=== PATIENT | female | born 1950 | race Caucasian/White ===

== ENCOUNTER 2021-06-20 07:26 | Emergency (ER) | payer MEDICARE, SELFPAY ==
[2021-06-20] VITALS (7 sets, daily range): BP systolic 100–189; BP diastolic 54–90; PULSE 75–99; RESP 12–19; TEMP 36.6–37; O2SAT 96–98; BMI 17.4
--- NOTE | ~2021-06-20 | CT_ITS ---
EXAMINATION: CT CERVICAL SPINE WITHOUT CONTRAST CLINICAL INFORMATION: Generalized weakness. COMPARISON: None TECHNIQUE: Helical scanning was performed with submillimeter collimation in the axial plane with multiplanar 2-D reconstructions. This CT examination was performed using dose optimization techniques as appropriate, variously including the following: *Automated exposure control *Adjustment of mA and/or kV according to patient size (this includes techniques or standardized protocols for targeted exams where dose is matched to indication/reason for exam; i.e. extremities or head) *Use of iterative reconstruction technique DLP: 311 mGy-cm FINDINGS: There is no acute fracture, subluxation, or prevertebral soft tissue swelling. There is [id number] multilevel degenerative disc disease with small marginal osteophytes. There is moderate disc space narrowing at C5-C6. There is mild bilateral multilevel facet arthropathy. CT/CT cervical spine wo con IMPRESSION: Hitg-bi-djrcrpzl multilevel degenerative disc disease. No evidence of acute injury.
--- NOTE | ~2021-06-20 | CT_ITS ---
EXAMINATION: CT ANGIOGRAM OF THE CHEST WITH AND WITHOUT CONTRAST (CT PULMONARY ANGIOGRAM FOR PE) CLINICAL INFORMATION: Reason for Exam weakness, LE swelling, wt loss, r/o pe vs mass . Abnormal noncontrast head CT. Assess for thoracic lesion. COMPARISON: None TECHNIQUE: Prior to contrast administration, noncontrast localization images were obtained. Subsequently, multidetector volumetric imaging was performed from the thoracic inlet to below the diaphragms following the administration of 54 mL Omnipaque 350 intravenous contrast. Sagittal, coronal, and MIP oblique sagittal reformatted images were obtained on the CT workstation, uploaded to PACS, and reviewed. This CT examination was performed using dose optimization techniques as appropriate, variously including the following: *Automated exposure control *Adjustment of mA and/or kV according to patient size (this includes techniques or standardized protocols for targeted exams where dose is matched to indication/reason for exam; i.e. extremities or head) *Use of iterative reconstruction technique Total exam dose-length product 171 mGy-cm FINDINGS: QUALITY OF STUDY/CONTRAST BOLUS: Suboptimal; Non-diagnostic. PULMONARY ARTERIES: The examination is nondiagnostic for evaluation of pulmonary embolism. Contrast timing is preferential for the aorta and the pulmonary veins. There is not enough enhancement in the pulmonary arteries to allow for reliable assessment. THORACIC AORTA: No aneurysm or dissection. LUNG: The central airways are clear. There is no lobar or segmental airspace consolidation. No pneumothorax. Some dependent atelectasis is present posterior bases, greater on left. No suspicious groundglass opacities. PLEURA: No pleural effusion or pneumothorax. MEDIASTINUM: Heart size normal. No pericardial effusion. No hilar or mediastinal mass or adenopathy. CHEST WALL/AXILLA: No axillary or internal mammary lymphadenopathy. OSSEOUS STRUCTURES: No acute or suspicious osseous abnormality. UPPER ABDOMEN: CT abdomen and pelvis described in separate report. Results called and discussed with Stephanie Wang NP in the emergency Department at [address]/CT angio chest PE protocol IMPRESSION: 1. Nondiagnostic for pulmonary embolism due to technical factors (preferential enhancement pulmonary veins and aorta). 2. No thoracic aortic enlargement or dissection. 3. Posterior basilar dependent atelectasis, greater on left. No mass or adenopathy or effusion. 4. CT abdomen and pelvis described in separate report. VTE: indeterminate
--- NOTE | ~2021-06-20 | CT_ITS ---
EXAMINATION: CT ABDOMEN AND PELVIS WITH CONTRAST CLINICAL INFORMATION: Weight loss, lower extremity swelling, rule out malignancy. COMPARISON: None. TECHNIQUE: Multidetector volumetric images were obtained from the superior aspect of the liver through the pubic symphysis following administration 54 mL of Omnipaque 350 intravenous contrast. Sagittal and coronal reformatted images were obtained on the technologist's workstation. Oral contrast: No This CT examination was performed using dose optimization techniques as appropriate, variously including the following: *Automated exposure control *Adjustment of mA and/or kV according to patient size (this includes techniques or standardized protocols for targeted exams where dose is matched to indication/reason for exam; i.e. extremities or head) *Use of iterative reconstruction technique DLP: 1237 mGy-cm FINDINGS: LUNG BASES: See chest CT report. Evaluation is somewhat limited by delayed phase of enhancement, following contrast enhanced chest CT. LIVER, GALLBLADDER, AND BILIARY TREE: Indeterminate 1 cm left lobe hypodense liver lesion. No intrahepatic biliary duct dilatation. The gallbladder is unremarkable with no evidence of radiopaque gallstones, gallbladder wall thickening, or obvious pericholecystic inflammatory changes. PANCREAS: No discrete lesion is seen. No dilatation seen. SPLEEN: No focal lesion. ADRENAL GLANDS: Appears within normal limits. KIDNEYS AND URETERS: There is contrast opacifying the collecting systems. No suspicious renal lesions identified, evaluation limited by phase of enhancement. There are multiple small hypodense lesions in the left kidney, too small to characterize. No radiopaque calculi. No hydronephrosis. BLADDER: Unremarkable. GASTROINTESTINAL TRACT: Stomach is nondistended, not evaluated. No dilated small or large bowel loops is seen. There is paucity of intra-abdominal fat limiting evaluation. There is moderate stool in the large colon. Large colon is nondistended, limiting evaluation mass lesion. No dilated small bowel loops. No acute inflammatory changes are seen. No gross free fluid. No free air. ABDOMINAL WALL: No significant hernia is appreciated. LYMPH NODES: No enlarged lymph nodes identified in the abdomen or pelvis. VASCULAR: Normal caliber aorta. PELVIC VISCERA: Uterus is retroverted limiting evaluation, but no obvious abnormality evident by CT. No adnexal masses identified, evaluation limited. OSSEOUS STRUCTURES: Scattered mild degenerative changes in the visualized spine. No acute or suspicious osseous abnormality seen. CT/CT abdomen pelvis w con IMPRESSION: 1. Indeterminate 1 cm hypodense left lobe liver lesion. This can be further evaluated with MRI without and with contrast. 2. No acute process otherwise identified in the abdomen or pelvis. 3. No obvious mass lesion is identified, within the limitations of the study, detailed above. Recommend close clinical correlation and management. Follow-up imaging for reassessment as clinically warranted. There is clinical concern for a large colon lesion, further evaluation with colonoscopy may be considered.
--- NOTE | ~2021-06-20 | US_ITS ---
EXAMINATION: US VENOUS ULTRASOUND WITH DOPPLER LOWER EXTREMITY, BILATERAL CLINICAL INFORMATION: Swelling COMPARISON: None TECHNIQUE: Ultrasound of the deep veins is performed from the hip to the calf with compression sonography and color and pulse Doppler assessment. Spectral analysis with color-flow imaging is performed. FINDINGS: RIGHT: There is normal venous compression and respiratory variation and augmented flow. The visualized common femoral vein, superficial femoral vein, profunda femoral vein, popliteal vein, and the trifurcation region shows no evidence of deep venous thrombosis. There is no significant popliteal fossa cyst. . LEFT: There is normal venous compression and respiratory variation and augmented flow. The visualized common femoral vein, superficial femoral vein, profunda femoral vein, popliteal vein, and the trifurcation region shows no evidence of deep venous thrombosis. There is no significant popliteal fossa cyst. . If the patient's symptoms persist, followup ultrasound in 5 days 7 days might be of value to exclude proximal propagation from a non-visualized calf vein. US/US venous duplex LE BI IMPRESSION: No DVT demonstrated in the bilateral lower extremity.
--- NOTE | ~2021-06-20 | MR_ITS ---
EXAMINATION: MR BRAIN WITHOUT AND WITH CONTRAST CLINICAL INFORMATION: Weakness. Weight loss. COMPARISON: None TECHNIQUE: MRI of the brain was obtained using routine sequences without and following the administration of 5 mL of Gadavist intravenous contrast. FINDINGS: No focal restricted diffusion is demonstrated to suggest acute or subacute cerebral ischemia. No evidence of acute or chronic hemorrhagic products on heme-sensitive imaging. Partially confluent periventricular, deep white matter, and brainstem T2 FLAIR hyperintensities. The ventricles are normal in morphology and size. No abnormal mass effect. No midline shift. Normal appearance of the pituitary gland. The cerebellar tonsils are mildly low lying, positioned 0.3 cm below the foramen magnum. The CSF space of the foramen magnum is maintained. Normal arterial and venous vascular flow voids are present. Small developmental venous anomaly within the high right frontal lobe. No abnormal contrast enhancement. Normal, homogeneous marrow signal. There is a 1 cm subcutaneous nodule along the vertex of the skull without demonstrated internal enhancement, suggestive of a small pilomatricoma. Moderate mucosal thickening of the paranasal sinuses with prominent mucous retention cysts within the maxillary sinuses. No signal abnormalities within the mastoids. MR/MR head/brain wo/w con IMPRESSION: 1. No acute intracranial abnormalities. No abnormal intracranial enhancement. 2. Moderate to extensive underlying white matter disease most commonly seen with underlying microangiopathy. 3. Mild cerebellar tonsillar ectopia. 4. Moderate sinonasal mucosal disease.
--- NOTE | ~2021-06-20 | CT_ITS ---
CT HEAD WITHOUT CONTRAST CLINICAL INFORMATION: Falls. COMPARISON: None available. TECHNIQUE: Contiguous axial imaging was performed from the skull base to vertex without intravenous administration of contrast. This CT examination was performed using dose optimization techniques as appropriate, variously including the following: *Automated exposure control *Adjustment of mA and/or kV according to patient size (this includes techniques or standardized protocols for targeted exams where dose is matched to indication/reason for exam; i.e. extremities or head) *Use of iterative reconstruction technique FINDINGS: There is fairly extensive nonspecific hypoattenuation within the supratentorial white matter for which a MRI of the brain with and without IV contrast would be helpful in further assessment. There is no intracranial hemorrhage, hydrocephalus, extra-axial surface collection, midline shift, or other herniation pattern. Leslie to white matter differentiation is diffusely maintained without evidence of an evolved acute territorial infarct. The basilar cisterns are preserved. No significant soft tissue abnormality. No acute osseous abnormality. Moderate opacification of the maxillary sinuses and ethmoid air cells bilaterally. Mild mucosal thickening within the remaining paranasal sinuses. 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 CT/CT head/brain wo con IMPRESSION: - There is fairly extensive nonspecific hypoattenuation within the supratentorial white matter for which a MRI of the brain with and without IV contrast would be helpful in further assessment. - Moderate opacification of the maxillary sinuses and ethmoid air cells bilaterally. Mild mucosal thickening within the remaining paranasal sinuses.
--- NOTE | 2021-06-20 08:19 | ECG_ITS ---
Test Reason : WEAKNESS Blood Pressure : / mmHG Vent. Rate : 094 BPM Atrial Rate : 094 BPM P-R Int : 148 ms QRS Dur : 070 ms QT Int : 352 ms P-R-T Axes : 071 073 065 degrees QTc Int : 440 ms Normal sinus rhythm Normal ECG No previous ECGs available Referred By: Bhumi Wang Electronically Signed By:JONNY HAWKINS
--- NOTE | 2021-06-20 08:19 | ED.WEAKNESS ---
HPI - Weakness General Chief complaint: Weakness Stated complaint: general weakness and shaking x2 days Time Seen by Provider: 06/20/21 08:00 Source: family and EMS Mode of arrival: EMS Limitations: no limitations History of Present Illness HPI Narrative: 70 yo female with no known medical history here with multiple complaints. Patient tells me she has had an unintentional weight loss of 40 lbs over the last 12 months. She has had generalized weakness with multiple falls at home since december 2020. Over the last month increasing weakness, unable to use their stairs at home. Today woke and unable to get out of bed. +generalized weakness and feeling shaky. Per patient lost 3 siblings to cancer since 2018 and suffers from frequent anxiety and panic attacks. She can also quite withdrawn. Patient does report anxiety and depression. She denies any suicidal or homicidal ideations. Her does help her with bathing and toileting. She is able to eat independently. She has not seen a primary care doctor in more than 10 years. She is not currently on any medications. She has never had a screening colonoscopy. She tells me that she has family history of pancreatic cancer, ?ovarian cancer, brain tumor, ALS. Related Data Allergies Allergy/AdvReac Type Severity Reaction Status Date / Time No Known Allergies Allergy Verified 06/20/21 08:19 Review of Systems Review of Systems: Yes all other systems are reviewed and are negative Constitutional: Constitutional: Reports no additional constitutional complaints, Denies body ache(s), Denies chills, Denies fever(s), Denies headache(s), Reports weakness and Reports weight loss Eyes: Eyes: Reports no additional eye complaints and Denies change in vision ENT: Reports system reviewed and no additional complaints, except as documented, Denies dizziness, Denies headache(s), Denies nasal congestion, Denies nasal discharge and Denies neck pain Cardiovascular: Cardiovascular: Reports no additional cardiovascular complaints, Denies chest pain, Reports leg edema and Denies dyspnea Respiratory: Respiratory: Reports no additional respiratory complaints, Denies cough and Denies dyspnea Gastrointestinal: Gastrointestinal: Reports no additional gastrointestinal complaints, Denies abdominal pain, Denies diarrhea, Denies nausea and Denies vomiting Genitourinary: Genitourinary: Reports no additional female genitourinary complaints and Denies urinary incontinence Musculoskeletal: Musculoskeletal: Reports no additional musculoskeletal complaints, Denies back pain, Denies arthralgias, Denies joint swelling, Denies neck pain, Denies numbness and Denies tingling Integumentary/Breasts: Skin/Breast: Reports system reviewed and no additional complaints, except as docu and Denies rash Neurologic: Reports system reviewed and no additional complaints, except as documented, Denies Abnormal speech present, Denies dizziness, Denies headache(s), Denies numbness, Denies tingling and Reports weakness PMFSH Past Medical History Attestation statement: The following information was validated with the patient. Source: old records reviewed and nursing notes reviewed Medical History No known health problems Social History Social History Alcohol intake: never Patient Tobacco Use Status: Never used Tobacco Use of substances other than those prescribed or required for medical reasons: No Advance Directives: No Advance Directives Information Provided: Yes Physical Exam Vital Signs: Vital Signs: Last Vital Signs Temp 97.8 F 06/20/21 07:33 Pulse 92 06/20/21 16:53 Resp 18 06/20/21 16:53 BP 167/79 H 06/20/21 16:53 Pulse Ox 98 06/20/21 16:53 Body Mass Index 17.4 Const: Other: Thin appearing General: cooperative Orientation/consciousness: patient oriented x3 Limitations: no limitations HENMT: Head: Yes normal to inspection Ears: hearing grossly normal bilaterally General nose exam: Normal external nose present Face and sinus: Yes normal facial exam Mouth: Normal oral and palatal mucosa present Throat: Yes posterior oropharynx normal Eyes: General: appearance normal, both eyes and all related structures Pupils: Equal, round and reactive pupils present Neck: Neck: Yes normal visual inspection Chest: Chest palpation & inspection: normal inspection of the chest Resp: Effort & Inspection: normal respiratory effort Auscultation: clear to auscultation bilaterally Cardio: Rate: regular rate Rhythm: regular rhythm Peripheral pulses: Peripheral pulses 2+ throughout GI: Inspection: Yes normal to inspection Palpation (GI): Soft to palpation and nontender Auscultation: normal bowel sounds Back/Spine/Pelvis: Thoracic/Lumbar Spine: thoracic and lumbar spine normal to inspection Skin: General skin exam: no rashes or lesions noted Neuro: General: patient oriented x3, no focal motor deficits and normal sensation to monofilament Cranial nerves: Yes Equal, round and reactive pupils present Cognition (Neuro): normal cognition Speech: No Abnormal speech present Gait exam (Neuro): Normal gait present Motor exam (neuro): 5/5 motor strength present throughout Extrem: Other: bilateral LE-pitting 2+ extending over the mid shins with some discoloration. No warmth or tenderness General: Yes normal to inspection Course Course Course Narrative: 70-year-old female here with complaints of generalized weakness, multiple falls, unintentional weight loss and lower extremity edema. Patient unfortunately has not seen a primary care doctor in quite some time and denies daily medications. She also tells me that she has not had any normal screening such as colonoscopy use or mammograms. She has significant family history for multiple malignancies. Will need labs, EKG, UA, chest x-ray and bilateral venous ultrasound to begin with. -Initial labs, imaging, UA negative. Concern for malignancy with weakness, wt loss -will check CT head, CT chest, CT abdomen/pelvis. If negative patient may need to care team to eval for depression component in addition to CM. 1400-CT chest nondiagnostic for PE. CT abdomen and pelvis shows no acute process. Ct brain - There is fairly extensive nonspecific hypoattenuation within the supratentorial white matter for which a MRI of the brain with and without IV contrast would be helpful in further assessment. ? - Moderate opacification of the maxillary sinuses and ethmoid air cells bilaterally. Mild mucosal thickening within the remaining paranasal sinuses. Discussed with attending Dr Simms. Plan for MRI brain. 1600-patient unable to tolerate MRI. She was brought back by MRI staff. Plan to go back to MRI at 17:00 with premedication 1740-if MRI negative patient will need physical therapy evaluation and case management involvement for likely placement. I did speak to the at length. He is quite concerned that the patient is depressed and anxious. He is asking for her to be evaluated by a crisis member. Therefore will place care team evaluation as well. 1800-Sign out to Paula LOMAX pending above. MDM - Weakness Medical Records Attestation: I reviewed the patient's medical records. Lab Data Attestation: I reviewed the patient's lab results. Result diagrams: 06/20/21 09:05 06/20/21 08:54 Labs: Lab Results 06/20/21 06/20/21 06/20/21 Range/Units 08:54 08:54 08:54 WBC (4.8-10.8) X10*3/uL RBC (4.20-5.50) X10*6/uL Hgb (12.0-16.0) g/dl Hct (37-47) % MCV (80-98) fL MCH (27.0-33.0) pg MCHC (31.0-35.0) g/dl RDW (11.0-16.0) % Plt Count (160-400) X10*3/uL MPV (9.4-12.3) fL Immature Gran % (Auto) (0.0-0.4) % Neut % (Auto) (45-73) % Lymph % (Auto) (20-40) % [place] % (Auto) (2-11) % Eos % (Auto) (0-4) % Baso % (Auto) (0-2) % Lymph # (Auto) (1.2-4.9) X10*3/uL [place] # (Auto) (0.1-1.2) X10*3/uL Eos # (Auto) (0.0-0.4) X10*3/uL Baso # (Auto) (0.0-0.2) X10*3/uL Abs Immat Gran (auto) (0.00-0.03) X10*3/uL Absolute Neuts (auto) (2.0-8.3) X10*3/uL Absolute Nucleated RBC (0.0-0.012) X10*3/uL Nucleated RBC % (auto) (0.0-0.2) /100WBC PT 12.7 (9.9-13.0) SEC INR 1.1 (0.9-1.1) Sodium 140 (135-145) mmol/L Potassium 4.0 (3.3-5.1) mmol/L Chloride 104 (96-108) mmol/L Carbon Dioxide 29 (22-29) mmol/L Anion Gap 11 L (12-20) BUN 19 H (9-16) mg/dL Creatinine 0.66 (0.5-1.4) mg/dL Estim Creat Clear Calc 67.2 Estimated GFR > 60 Random Glucose 104 (60-115) mg/dL Lactic Acid 0.7 (0.5-2.0) mmol/L Calcium 9.5 (8.4-10.2) mg/dL Magnesium 2.4 (1.6-2.6) mg/dL Total Bilirubin 0.9 (0.0-1.0) mg/dL Direct Bilirubin 0.3 (0.0-0.5) mg/dL AST 29 (5-31) U/L ALT 20 (0-31) U/L Alkaline Phosphatase 45 (39-117) U/L Troponin I High Sens (<3.5-17.0) ng/L B-Natriuretic Peptide (<100) pg/mL Total Protein 7.3 (6.5-8.0) g/dL Albumin 4.3 (3.5-5.0) g/dL Urine Color Urine Appearance Urine pH (5.0-8.0) Ur Specific [place] (1.005-1.025) Urine Protein (NEG-TRACE) MG/DL Urine Glucose (UA) (NEG) MG/DL Urine Ketones (NEG) MG/DL Urine Blood (NEG) Urine Nitrite (NEG) Ur Leukocyte Esterase (NEG) COVID-19 (VLADIMIR) (Negative) COVID-19 Clin Com 06/20/21 06/20/21 06/20/21 Range/Units 08:54 08:54 09:05 WBC 5.2 (4.8-10.8) X10*3/uL RBC 3.93 L (4.20-5.50) X10*6/uL Hgb 12.9 (12.0-16.0) g/dl Hct 38.8 (37-47) % MCV 98.7 H (80-98) fL MCH 32.8 (27.0-33.0) pg MCHC 33.2 (31.0-35.0) g/dl RDW 13.1 (11.0-16.0) % Plt Count 221 (160-400) X10*3/uL MPV 9.2 L (9.4-12.3) fL Immature Gran % (Auto) 0.2 (0.0-0.4) % Neut % (Auto) 78.6 H (45-73) % Lymph % (Auto) 13.1 L (20-40) % [place] % (Auto) 6.9 (2-11) % Eos % (Auto) 1.0 (0-4) % Baso % (Auto) 0.2 (0-2) % Lymph # (Auto) 0.7 L (1.2-4.9) X10*3/uL [place] # (Auto) 0.4 (0.1-1.2) X10*3/uL Eos # (Auto) 0.1 (0.0-0.4) X10*3/uL Baso # (Auto) 0.0 (0.0-0.2) X10*3/uL Abs Immat Gran (auto) 0.01 (0.00-0.03) X10*3/uL Absolute Neuts (auto) 4.1 (2.0-8.3) X10*3/uL Absolute Nucleated RBC 0.000 (0.0-0.012) X10*3/uL Nucleated RBC % (auto) 0.0 (0.0-0.2) /100WBC PT (9.9-13.0) SEC INR (0.9-1.1) Sodium (135-145) mmol/L Potassium (3.3-5.1) mmol/L Chloride (96-108) mmol/L Carbon Dioxide (22-29) mmol/L Anion Gap (12-20) BUN (9-16) mg/dL Creatinine (0.5-1.4) mg/dL Estim Creat Clear Calc Estimated GFR Random Glucose (60-115) mg/dL Lactic Acid (0.5-2.0) mmol/L Calcium (8.4-10.2) mg/dL Magnesium Cancelled (1.6-2.6) mg/dL Total Bilirubin (0.0-1.0) mg/dL Direct Bilirubin (0.0-0.5) mg/dL AST (5-31) U/L ALT (0-31) U/L Alkaline Phosphatase (39-117) U/L Troponin I High Sens (<3.5-17.0) ng/L B-Natriuretic Peptide (<100) pg/mL Total Protein (6.5-8.0) g/dL Albumin (3.5-5.0) g/dL Urine Color Urine Appearance Urine pH (5.0-8.0) Ur Specific [place] (1.005-1.025) Urine Protein (NEG-TRACE) MG/DL Urine Glucose (UA) (NEG) MG/DL Urine Ketones (NEG) MG/DL Urine Blood (NEG) Urine Nitrite (NEG) Ur Leukocyte Esterase (NEG) COVID-19 (VLADIMIR) Negative (Negative) COVID-19 Clin Com See Note 06/20/21 06/20/21 Range/Units 09:05 09:24 WBC (4.8-10.8) X10*3/uL RBC (4.20-5.50) X10*6/uL Hgb (12.0-16.0) g/dl Hct (37-47) % MCV (80-98) fL MCH (27.0-33.0) pg MCHC (31.0-35.0) g/dl RDW (11.0-16.0) % Plt Count (160-400) X10*3/uL MPV (9.4-12.3) fL Immature Gran % (Auto) (0.0-0.4) % Neut % (Auto) (45-73) % Lymph % (Auto) (20-40) % [place] % (Auto) (2-11) % Eos % (Auto) (0-4) % Baso % (Auto) (0-2) % Lymph # (Auto) (1.2-4.9) X10*3/uL [place] # (Auto) (0.1-1.2) X10*3/uL Eos # (Auto) (0.0-0.4) X10*3/uL Baso # (Auto) (0.0-0.2) X10*3/uL Abs Immat Gran (auto) (0.00-0.03) X10*3/uL Absolute Neuts (auto) (2.0-8.3) X10*3/uL Absolute Nucleated RBC (0.0-0.012) X10*3/uL Nucleated RBC % (auto) (0.0-0.2) /100WBC PT (9.9-13.0) SEC INR (0.9-1.1) Sodium (135-145) mmol/L Potassium (3.3-5.1) mmol/L Chloride (96-108) mmol/L Carbon Dioxide (22-29) mmol/L Anion Gap (12-20) BUN (9-16) mg/dL Creatinine (0.5-1.4) mg/dL Estim Creat Clear Calc Estimated GFR Random Glucose (60-115) mg/dL Lactic Acid (0.5-2.0) mmol/L Calcium (8.4-10.2) mg/dL Magnesium (1.6-2.6) mg/dL Total Bilirubin (0.0-1.0) mg/dL Direct Bilirubin (0.0-0.5) mg/dL AST (5-31) U/L ALT (0-31) U/L Alkaline Phosphatase (39-117) U/L Troponin I High Sens 5.2 (<3.5-17.0) ng/L B-Natriuretic Peptide 60 (<100) pg/mL Total Protein (6.5-8.0) g/dL Albumin (3.5-5.0) g/dL Urine Color YELLOW Urine Appearance CLEAR Urine pH 6.5 (5.0-8.0) Ur Specific [place] <= 1.005 (1.005-1.025) Urine Protein NEG (NEG-TRACE) MG/DL Urine Glucose (UA) NEG (NEG) MG/DL Urine Ketones NEG (NEG) MG/DL Urine Blood NEG (NEG) Urine Nitrite NEG (NEG) Ur Leukocyte Esterase NEG (NEG) COVID-19 (VLADIMIR) (Negative) COVID-19 Clin Com Imaging Data Venous US: Attestation: I personally reviewed and interpreted this imaging study as follows: Radiologist's impression: [place] [address] Ultrasound Report Signed Patient: Brett Turner MR#: [id number] : 1950 Acct:[id number] Age/Sex: 70 / F ADM Date: 06/20/21 Loc: .ED Attending Dr: Ordering Physician: Bhumi Wang NP Date of Service: 06/20/21 Procedure(s): US venous duplex LE BI Accession Number(s): [id number] cc: Bhumi Wang NP~ EXAMINATION:? US VENOUS ULTRASOUND WITH DOPPLER LOWER EXTREMITY, BILATERAL CLINICAL INFORMATION:? Swelling COMPARISON:? None TECHNIQUE: Ultrasound of the deep veins is performed from the hip to the calf with compression sonography and color and pulse Doppler assessment. Spectral analysis with color-flow imaging is performed. FINDINGS: RIGHT: There is normal venous compression and respiratory variation and augmented flow. The visualized common femoral vein, superficial femoral vein, profunda femoral vein, popliteal vein, and the trifurcation region shows no evidence of deep venous thrombosis. ? There is no significant popliteal fossa cyst. . LEFT: There is normal venous compression and respiratory variation and augmented flow. The visualized common femoral vein, superficial femoral vein, profunda femoral vein, popliteal vein, and the trifurcation region shows no evidence of deep venous thrombosis. ? There is no significant popliteal fossa cyst. . If the patient's symptoms persist, followup ultrasound in 5 days 7 days might be of value to exclude proximal propagation from a non-visualized calf vein. US/US venous duplex LE BI IMPRESSION: No DVT demonstrated in the bilateral lower extremity. CTA chest: Attestation: I personally reviewed and interpreted this imaging study as follows: Radiologist's impression: [address] [address] [address] Scan Report Signed Patient: Brett Turner MR#: [id number] : 1950 Acct:[id number] Age/Sex: 70 / F ADM Date: 06/20/21 Loc: .ED Attending Dr: Ordering Physician: Bhumi Wang NP Date of Service: 06/20/21 Procedure(s): CT angio chest PE protocol Accession Number(s): [id number] cc: Bhumi Wang NP~ EXAMINATION: CT ANGIOGRAM OF THE CHEST WITH AND WITHOUT CONTRAST (CT PULMONARY ANGIOGRAM FOR PE) CLINICAL INFORMATION: Reason for Exam weakness, LE swelling, wt loss, r/o pe vs mass . Abnormal noncontrast head CT. Assess for thoracic lesion. COMPARISON: None? TECHNIQUE: Prior to contrast administration, noncontrast localization images were obtained. ? Subsequently, multidetector volumetric imaging was performed from the thoracic inlet to below the diaphragms following the administration of 54 mL Omnipaque 350 intravenous contrast. Sagittal, coronal, and MIP oblique sagittal reformatted images were obtained on the CT workstation, uploaded to PACS, and reviewed. This CT examination was performed using dose optimization techniques as appropriate, variously including the following: *Automated exposure control *Adjustment of mA and/or kV according to patient size (this includes techniques or standardized protocols for targeted exams where dose is matched to indication/reason for exam; i.e. extremities or head) *Use of iterative reconstruction technique Total exam dose-length product 171 mGy-cm FINDINGS: QUALITY OF STUDY/CONTRAST BOLUS: Suboptimal; Non-diagnostic. PULMONARY ARTERIES: The examination is nondiagnostic for evaluation of pulmonary embolism. Contrast timing is preferential for the aorta and the pulmonary veins. There is not enough enhancement in the pulmonary arteries to allow for reliable assessment. THORACIC AORTA: No aneurysm or dissection. LUNG: The central airways are clear. There is no lobar or segmental airspace consolidation. No pneumothorax. Some dependent atelectasis is present posterior bases, greater on left. No suspicious groundglass opacities. PLEURA: No pleural effusion or pneumothorax. MEDIASTINUM: Heart size normal. No pericardial effusion. No hilar or mediastinal mass or adenopathy.? CHEST WALL/AXILLA: No axillary or internal mammary lymphadenopathy. OSSEOUS STRUCTURES: No acute or suspicious osseous abnormality.? UPPER ABDOMEN: CT abdomen and pelvis described in separate report.? Results called and discussed with Stephanie Wang NP in the emergency Department at [address]/CT angio chest PE protocol IMPRESSION: ? 1. Nondiagnostic for pulmonary embolism due to technical factors (preferential enhancement pulmonary veins and aorta). 2. No thoracic aortic enlargement or dissection. 3. Posterior basilar dependent atelectasis, greater on left. No mass or adenopathy or effusion. 4. CT abdomen and pelvis described in separate report. ? VTE: indeterminate CT scan - head: Attestation: I personally reviewed and interpreted this imaging study as follows: Radiologist's impression: FINDINGS: There is fairly extensive nonspecific hypoattenuation within the supratentorial white matter for which a MRI of the brain with and without IV contrast would be helpful in further assessment. There is no intracranial hemorrhage, hydrocephalus, extra-axial surface collection, midline shift, or other herniation pattern. Leslie to white matter differentiation is diffusely maintained without evidence of an evolved acute territorial infarct. The basilar cisterns are preserved. No significant soft tissue abnormality. No acute osseous abnormality. Moderate opacification of the maxillary sinuses and ethmoid air cells bilaterally. Mild mucosal thickening within the remaining paranasal sinuses. 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 CT/CT head/brain wo con IMPRESSION: - There is fairly extensive nonspecific hypoattenuation within the supratentorial white matter for which a MRI of the brain with and without IV contrast would be helpful in further assessment. ? - Moderate opacification of the maxillary sinuses and ethmoid air cells bilaterally. Mild mucosal thickening within the remaining paranasal sinuses. ? CT scan - abdomen: Attestation: I personally reviewed and interpreted this imaging study as follows: Radiologist's impression: CT/CT abdomen pelvis w con IMPRESSION: 1. Indeterminate 1 cm hypodense left lobe liver lesion. This can be further evaluated with MRI without and with contrast. ? 2. No acute process otherwise identified in the abdomen or pelvis. ? 3. No obvious mass lesion is identified, within the limitations of the study, detailed above. Recommend close clinical correlation and management. Follow-up imaging for reassessment as clinically warranted. There is clinical concern for a large colon lesion, further evaluation with colonoscopy may be considered.? ECG Data Attestation: I personally reviewed and interpreted this ECG as follows: ECG interpretation date: 06/20/21 ECG interpretation time: 08:49 Interpretation: Normal sinus rhythm with a rate of 94, normal AK, normal QRS, normal QT Discharge Plan Discharge Clinical Impression: Weakness
[2021-06-20 09:06] LABS: INTERNATIONAL NORM RATIO 1.1 (0.9-1.1); Prothrombin Time 12.7 SEC (9.9-13.0)
[2021-06-20 09:08] LABS: MANUAL DIFF FLAG NO
[2021-06-20 09:12] LABS: Basophils Percent Auto 0.2 % (0-2); Eosinophils Absolute Auto 0.1 X10*3/uL (0.0-0.4); Hematocrit 38.8 % (37-47); Hemoglobin 12.9 g/dl (12.0-16.0); Imm Gran Abs Auto 0.01 X10*3/uL (0.00-0.03); Imm Gran Pct Auto 0.2 % (0.0-0.4); Lymphocytes Absolute Auto 0.7 X10*3/uL (1.2-4.9); Lymphocytes Percent Auto 13.1 % (20-40); Mean Corpuscular HGB Conc 33.2 g/dl (31.0-35.0); Mean Corpuscular Hemoglobin 32.8 pg (27.0-33.0); Mean Corpuscular Volume 98.7 fL (80-98); Mean Platelet Volume 9.2 fL (9.4-12.3); Monocytes Absolute Auto 0.4 X10*3/uL (0.1-1.2); Monocytes Percent Auto 6.9 % (2-11); Neutrophils Absolute Auto 4.1 X10*3/uL (2.0-8.3); Neutrophils Percent Auto 78.6 % (45-73); Platelet Count 221 X10*3/uL (160-400); Red Blood Count 3.93 X10*6/uL (4.20-5.50); Red Cell Distribution Width 13.1 % (11.0-16.0); White Blood Count 5.2 X10*3/uL (4.8-10.8)
[2021-06-20 09:15] LABS: COVID-19 Test Negative (Negative)
[2021-06-20 09:20] LABS: Lactic Acid 0.7 mmol/L (0.5-2.0)
[2021-06-20 09:26] LABS: Alanine Aminotransferase 20 U/L (0-31); Albumin Level 4.3 g/dL (3.5-5.0); Alkaline Phosphatase 45 U/L (39-117); Anion Gap 11 (12-20); Aspartate Amino Transferase 29 U/L (5-31); Bilirubin Direct 0.3 mg/dL (0.0-0.5); Bilirubin Total 0.9 mg/dL (0.0-1.0); Blood Urea Nitrogen 19 mg/dL (9-16); Calcium 9.5 mg/dL (8.4-10.2); Carbon Dioxide 29 mmol/L (22-29); Chloride 104 mmol/L (96-108); Creatinine Clr Calc Pharmacy 67.2; Estimated Glomerular Filt Rate > 60; Glucose Random 104 mg/dL (60-115); Magnesium 2.4 mg/dL (1.6-2.6); Sodium 140 mmol/L (135-145); Total Protein 7.3 g/dL (6.5-8.0)
[2021-06-20 09:32] LABS: Appearance Urine CLEAR; Color Urine YELLOW; Glucose Urine UA NEG (NEG); Leukocyte Esterase Urine NEG (NEG); Nitrite Urine NEG (NEG); PH 6.5 (5.0-8.0); Specific Gravity - Urine <= 1.005 (1.005-1.025); Urine Blood NEG (NEG); Urine Ketones NEG (NEG); Urine Protein NEG (NEG-TRACE)
[2021-06-20 09:42] LABS: B Type Natriuretic Peptide 60 pg/mL (<100); Troponin-I High Sensitivity 5.2 ng/L (<3.5-17.0)
[2021-06-20] MEDS: iohexoL 350 MG/ML 100 ML INFUS..BTL 54 ML IV (11:57)
--- NOTE | 2021-06-20 14:15 | PC.NURSE ---
alert, aware of care plan, denies pain
[2021-06-20] MEDS: Morphine Sulfate 2 MG/ML CARTRIDGE IVPUSH (16:50)
[2021-06-20] MEDS: LORazepam 2 MG/ML VIAL 1 MG IVPUSH (16:50)
--- NOTE | 2021-06-20 21:46 | PC.NURSE ---
Pt aaox4 resting on stretcher in NAD, breathing with ease on RA with VSS. Pt with significant but equal BLE weakness and minimal to no effort against gravity. This RN performed swallow eval as it had not been completed by previous RN as ordered. With first sip of water, pt began coughing and as a result of coughing, pt spit some water out. Pt marked as a fail by this RN. This RN notified Dr Dodson and made him aware, requested that he order a speech eval. Dr Dodson reports her MRI was normal, there is no reason for this. Dr Dodson requested that this RN and Dr Dodson perform swallow eval together at bedside. Dr Dodson brought water to pt with this RN at bedside. Pt swallowed water, able to tolerate without coughing/spitting. Per Dr Dodson she's fine, she can swallow. Pt requesting food, per Dr Dodson, pt ok to receive food.
--- NOTE | 2021-06-20 21:53 | MHC.CM.ED ---
Addendum entered by Sonja Acevedo 06/20/21 22:57: Pt awake and requesting sandwich at 2215. Pt ate 1/2 turkey sandwich. CM met with pt. Pt did not remember CM attempting to speak with her. Pt A&Ox3. Very soft spoken. Pt admits to much loss in her life, losing 5 siblings since 2013, and a sister to ALS in 2018. Pt presents with sad affect, but denies depression. Pt also admits to poor sleep, with perhaps only 5 hours/night. Pt admits to being fearful of being ill. Reviewed plan of care with pt, including staying overnight for PT evaluation in am and possible STR. Spoke with pt about need for PCP and reviewed HCP. Pt and will discuss and CM will revisit HCP in the am. Careport with 11 facilities given to . Reviewed careport. Will call in am with PT recommendations. Addendum entered by Sonja Acevedo 06/20/21 22:07: Unable to address HCP with pt, as she is falling asleep from medications given to her prior to MRI Original Note: CM met with patient at request of Dr. Veliz. Pt very sleepy. Had been given ativan and morphine for MRI. CM spoke with at bedside. states pt has been getting progressively weaker since December. Will some falls. States has had weight loss. States pt normally alert and orientated and denies any confusion or dementia. States since Sunday, pt has been unable to ambulate very short distances, needs his assistance and cannot negotiate stairs. States appetite is poor and hasn't eaten in over 24 hours. States his is very weak. States she has some anxiety/depression (not diagnosed), but his major concern is her weakness and inability to ambulate short distances. is agreeable to PT evaluation in the am with possible referral for STR. CM explained this to the patient and she seems agreeable, but remains very sleepy for medications needed for her to tolerate an MRI. Pt has not seen a PCP in over 10 years and does not take any medications. aware that home PT is not an option, as pt does not have a PCP. Explained that pt will need to see a PCP. concerned about the process going forward. Will give a careport with facilities in [facility] and [facility] at his request. requested that careport be left at bedside, as he will be going home. aware that CM will speak with him tomorrow regarding PT recommendations. If STR recommended, knows that he will have a choice of facilities that offer his a bed. will speak with his daughter and return in the am. Pt will board overnight, pending PT evaluation. CM to follow for d/c needs.
--- NOTE | 2021-06-20 23:42 | PC.NURSE ---
Pt asleep on stretcher in NAD, breathing with ease on RA. Pt's at bedside. Pt aware and agreeable to plan for PT/CM with possibility of STR. Pt with red fall alert bracelet on, red star posted outside of room, red fall prevention socks. Pt's stretcher in lowest locked position, rails raised, call bazzi within reach.
[2021-06-21 02:37] VITALS: BP 101/56; PULSE 75; RESP 20; TEMP 37; O2SAT 95
--- NOTE | 2021-06-21 02:41 | PC.NURSE ---
Pt asleep on stretcher in NAD, breathing with ease on RA. Pt VSS. Pt with purewick in place, draining appropriately. No incontinence care needed at this time.
--- NOTE | 2021-06-21 07:27 | PC.NURSE ---
report taken from paul pascal pt resting in stretcher, rr even/unlabored. periwick in place for difficulty ambulating, urine appears clear/yellow. breakfast tray given and at bedside. wctm for dc needs.
--- NOTE | 2021-06-21 10:33 | MHC.CM.ED ---
Patient remains in ER. Physical therapy eval is pending. Continue to monitor for d/c needs.
[2021-06-21 10:58] VITALS: BP 101/56; PULSE 75; O2SAT 95
--- NOTE | 2021-06-21 11:02 | MHC.CM.ED ---
Physical therapy eval completed. Short term rehab is recommended. Met with patient and Carlos in regards to discharge planning. Patient has not received any Covid vaccines. Carlos requesting referrals to all 3 acute rehabs. Referral made via [employer]. T/W explained patient may be difficult to place due to not receiving Covid vaccine. Patient and Carlos agreeable to referral being broadcasted within 20 miles of patient's residence. Referral broadcasted in [employer]. Continue to monitor for d/c needs.
--- NOTE | 2021-06-21 13:36 | PC.NURSE ---
pt linens changed, scant wet linens removed, periwick kept in place, vacuum reservoir changed.
--- NOTE | 2021-06-21 16:25 | MHC.CM.ED ---
Pt and accept offered bed at [facility] acute rehab in [place]. New PCP appointment made for pt at request of [facility] liaison with Dr. Palma on July 06 at 11:[address] Palma. given appointment card. BLS booked for 5:30 with [facility]. RAFAEL marquez RN aware.
--- NOTE | 2021-06-21 16:39 | PC.NURSE ---
RN to RN report given to Sharon WOODWARD at [facility] in [place]. Pt to be picked-up & transferred via EMS around 17:30.
[2021-06-21 17:34] VITALS: BP 160/81; PULSE 104; RESP 14; TEMP 37; O2SAT 97
== END 2021-06-21 18:02 | disposition skilled nursing facility (03) ==
PROVIDERS: Nurse Practitioner Family; Emergency Provider Emergency Medicine
DX: R53.1 Weakness (principal); R06.02 Shortness of breath; R60.0 Localized edema; G44.309 Post-traumatic headache, unspecified, not intractable; Z79.899 Other long term (current) drug therapy; Z20.822 Contact with and (suspected) exposure to COVID-19; Z91.81 History of falling
CPT/HCPCS: 36415; 70450; 70553; 71275; 72125; 74177; 80048; 80076; 81003; 83605; 83735; 83880; 84484; 85025; 85610; 87040; 87635; 93005; 93970; 96374; 96375; 97163; 99285; A9585; J2060; J2270; Q9967

== ENCOUNTER 2022-12-20 00:26 | Emergency (ER) | payer MEDICARE, SELFPAY ==
--- NOTE | ~2022-12-20 | CT_ITS ---
EXAMINATION: CT head/brain wo IV con CLINICAL INFORMATION: Reason for Exam Persistent Tremor COMPARISON: CT head without contrast 06/20/2021 TECHNIQUE: Contiguous axial imaging was performed from the skull base to vertex without intravenous contrast. Sagittal and coronal reformatted images were obtained. This CT examination was performed using dose optimization techniques as appropriate, variously including the following: * Automated exposure control * Adjustment of mA and/or kV according to patient size (this includes techniques or standardized protocols for targeted exams where dose is matched to indication/reason for exam; i.e. extremities or head) Use of iterative reconstruction technique DLP: 635 mGy-cm FINDINGS: No acute osseous or soft tissue abnormality. Stable calcified lesion along the left superior parietal scalp. The mastoids are clear. Moderate ethmoid and maxillary sinus mucosal thickening. There is no evidence of acute intracranial hemorrhage or territorial infarction. No abnormal mass effect or midline shift is seen. Leslie to white matter differentiation is well preserved. No extra-axial fluid collections are identified. No hydrocephalus. No significant volume loss. Patchy periventricular and deep white matter hypoattenuation is consistent with moderate small vessel ischemic changes. CT/CT head/brain wo IV con IMPRESSION: No acute intracranial abnormality including hemorrhage, mass effect, hydrocephalus, or acute territorial edematous infarction.
[2022-12-20 00:56] VITALS: BP 156/69; PULSE 87; RESP 16; TEMP 35.9; O2SAT 96; BMI 20.5
--- NOTE | 2022-12-20 01:05 | ECG_ITS ---
Test Reason : WEAKNESS Blood Pressure : / mmHG Vent. Rate : 097 BPM Atrial Rate : 097 BPM P-R Int : 178 ms QRS Dur : 068 ms QT Int : 348 ms P-R-T Axes : 072 059 051 degrees QTc Int : 441 ms Poor data quality Sinus rhythm with marked sinus arrhythmia Cannot rule out Anterior infarct , age undetermined Abnormal ECG When compared with ECG of 20-JUN-2021 08:49, No significant change was found Referred By: Delores Dooley Electronically Signed By:IRAIDA WHITEHEAD MD
--- NOTE | 2022-12-20 01:38 | ED.GENADULT ---
HPI - General Adult General Chief complaint: General Medical Stated complaint: Weakness Time Seen by Provider: 12/20/22 01:03 Source: patient and family () Mode of arrival: EMS History of Present Illness HPI narrative: This is a 72-year-old female who presents with increasing difficulty with walking with increase in tremors since August and this evening patient was unable to stand up and walk to the bathroom. At baseline, she is walking with a walker and who provides most of the history states that she is had a shuffling gait that started off being worse in the morning but now has progressed to being throughout the day with persistent ?shakes?. This is not been associated with any fever, chills, cough, changes in medications. BACKGROUND: Patient had a similar episode in 2020 and had extensive workup to include brain MRI which did not show any acute findings, patient went to the rehab in states that she improved, they followed up with Dr. Louie dial who recommended that they see Neurology but the said that his was doing well and so they decided to hold off. He then states that she had a minor episode between December and March of 2022 with increased tremulousness and shuffling gait that seems to self resolve, everything was going well and then in August she began developing symptoms once again. They have not followed up with her primary care provider. Related Data Home Medications Medication Instructions Recorded Confirmed acetaminophen 325 mg capsule 325 mg PO QID PRN Pain 06/20/21 07/06/21 (Tylenol) Previous Rx's Medication Instructions Recorded mirtazapine 15 mg tablet 7.5 mg PO BEDTIME 30 days #15 tabs 11/10/22 Allergies Allergy/AdvReac Type Severity Reaction Status Date / Time No Known Allergies Allergy Verified 07/06/21 12:11 Review of Systems Review of Systems: Pertinent positives and negatives as stated in HPI [facility] Past Medical History Source: nursing notes reviewed Medical History Weakness Surgical History No history of previous surgery Family History Family History Mother Cancer Father Diabetes Social History Social History Housing: House Alcohol intake: never Patient Tobacco Use Status: Never used Tobacco Second Hand Smoke Exposure: Yes Advance Directives: Yes Advance Directives Information Provided: No Advance Directives on File: Yes Advance Directives Date on File: 06/21/21 service: No Current occupational status: retired Physical Exam ED Vital Signs: Vital Signs - 24 hr 12/20/22 00:56 Temperature 96.7 F L Pulse Rate 87 Respiratory Rate 16 Blood Pressure 156/69 H Pulse Oximetry 96 Oxygen Delivery Method Room Air BMI result Body Mass Index 20.5 VITAL SIGNS: Reviewed. GENERAL: Elderly, very thin, in no acute distress. HEAD: Normocephalic/atraumatic EYES: PERRLA, EOMI EARS: Ext canals without abnormality OROPHARYNX: no oral lesions noted, posterior pharynx clear LUNGS: Normal breath sounds. No adventitious sounds or accessory muscle use. SpO2<96> CARDIOVASCULAR: Regular rate and rhythm without noted murmurs, no JVD but mild nonpitting lower extremity edema bilaterally ABDOMEN: Soft, non-tender, non-distended with bowel sounds. MUSCULOSKELETAL: No tenderness, deformities, or effusions noted on gross inspection. EXTREMITIES: No cyanosis, clubbing or edema. SKIN: Inspection of the skin reveals no rashes NEUROLOGIC: Alert and oriented x 4. Strength and sensation to light touch were grossly intact x 4, patient has persistent tremor that does not resolve with intention, plantar and dorsiflexion at the ankle is strong and symmetrical, flexion of the knee against resistance is strong and symmetrical. At this time I did not ambulate the patient. Medical Decision Making Medical Decision Making MDM Narrative: 72-year-old female with history and presentation of intermittent but progressive worsening of tremor, low clinical suspicion for MS and suspect possible movement disorder, patient has no cognitive deficits. Otherwise, there are no focal deficits. Will obtain lab work and include B12/folate/inflammatory markers but patient will ultimately need a neurology consultation. Currently, she is having significant difficulty with walking. Signed out to Dr Pizarro Differential Diagnosis Please see the discussion above Consult Healthcare Provider Management of the patient was discussed with: Hospitalist [id number]: Discussed with the inpatient hospitalist who is aware the patient and will likely accept admission and is recommending CT of the head at this time. Lab Data Please see the discussion above 12/20/22 01:32 12/20/22 01:32 Labs: Lab Results 12/20/22 12/20/22 12/20/22 Range/Units 01:32 01:32 01:32 WBC 6.9 (4.8-10.8) X10*3/uL RBC 4.04 L (4.20-5.50) X10*6/uL Hgb 12.8 (12.0-16.0) g/dl Hct 38.4 (37.0-47.0) % MCV 95.0 (80.0-98.0) fL MCH 31.7 (27.0-33.0) pg MCHC 33.3 (31.0-35.0) g/dl RDW 13.3 (11.0-16.0) % Plt Count 199 (160-400) X10*3/uL MPV 10.2 (9.4-12.3) fL Immature Gran % (Auto) 0.3 (0.0-0.4) % Neut % (Auto) 83.9 H (45-73) % Lymph % (Auto) 10.3 L (20-40) % [place] % (Auto) 4.1 (2-11) % Eos % (Auto) 1.0 (0-4) % Baso % (Auto) 0.4 (0-2) % Lymph # (Auto) 0.7 L (1.2-4.9) X10*3/uL [place] # (Auto) 0.3 (0.1-1.2) X10*3/uL Eos # (Auto) 0.1 (0.0-0.4) X10*3/uL Baso # (Auto) 0.0 (0.0-0.2) X10*3/uL Abs Immat Gran (auto) 0.02 (0.00-0.03) X10*3/uL Absolute Neuts (auto) 5.8 (2.0-8.3) x10*3/uL Absolute Nucleated RBC 0.000 (0.0-0.012) X10*3/uL Nucleated RBC % (auto) 0.0 (0.0-0.2) /100WBC PT 11.8 (10.0-13.1) SEC INR 1.0 (0.9-1.1) Troponin I High Sens < 3.5 (<3.5-17.0) ng/L Independent Interpretation I performed an independent interpretation of an: EKG Interpretation: Sinus rhythm, HR-97, no STEMI, DC/QRS/QTC is within normal limits. External Record Review External record reviewed: Outpatient record and Prior outpatient labs Critical Care Time Critical Care Time Critical Care Time: Yes Total Critical Care Time: 30 Attestation: I personally attest to this time spent taking care of the patient. Discharge Plan Discharge Clinical Impression: Weakness, Movement disorder Patient Disposition: Still a Patient Prescriptions: No [facility] mirtazapine 15 mg tablet 7.5 mg PO BEDTIME 30 Days Qty: 15 1RF acetaminophen [Tylenol] 325 mg Capsule 325 mg PO QID PRN (Reason: Pain)
[2022-12-20 01:42] LABS: MANUAL DIFF FLAG NO
[2022-12-20 01:43] LABS: Basophils Percent Auto 0.4 % (0-2); Eosinophils Absolute Auto 0.1 X10*3/uL (0.0-0.4); Hematocrit 38.4 % (37.0-47.0); Hemoglobin 12.8 g/dl (12.0-16.0); Imm Gran Abs Auto 0.02 X10*3/uL (0.00-0.03); Imm Gran Pct Auto 0.3 % (0.0-0.4); Lymphocytes Absolute Auto 0.7 X10*3/uL (1.2-4.9); Lymphocytes Percent Auto 10.3 % (20-40); Mean Corpuscular HGB Conc 33.3 g/dl (31.0-35.0); Mean Corpuscular Hemoglobin 31.7 pg (27.0-33.0); Mean Platelet Volume 10.2 fL (9.4-12.3); Monocytes Absolute Auto 0.3 X10*3/uL (0.1-1.2); Monocytes Percent Auto 4.1 % (2-11); Neutrophils Absolute Auto 5.8 x10*3/uL (2.0-8.3); Neutrophils Percent Auto 83.9 % (45-73); Platelet Count 199 X10*3/uL (160-400); Red Blood Count 4.04 X10*6/uL (4.20-5.50); Red Cell Distribution Width 13.3 % (11.0-16.0); White Blood Count 6.9 X10*3/uL (4.8-10.8)
[2022-12-20 01:49] LABS: Prothrombin Time 11.8 SEC (10.0-13.1)
[2022-12-20 02:04] LABS: Troponin-I High Sensitivity < 3.5 ng/L (<3.5-17.0)
[2022-12-20 02:14] LABS: Alanine Aminotransferase 17 U/L (0-31); Albumin Level 4.1 g/dL (3.5-5.0); Alkaline Phosphatase 43 U/L (39-117); Anion Gap 16 (12-20); Aspartate Amino Transferase 25 U/L (5-31); Bilirubin Total 0.6 mg/dL (0.0-1.0); Blood Urea Nitrogen 28 mg/dL (9-16); C Reactive Protein < 0.04 mg/dL (< or = 0.50); Calcium 9.5 mg/dL (8.4-10.2); Carbon Dioxide 27 mmol/L (22-29); Chloride 104 mmol/L (96-108); Estimated Glomerular Filt Rate > 60; Glucose Random 117 mg/dL (60-115); Potassium 4.2 mmol/L (3.3-5.1); Sodium 143 mmol/L (135-145)
[2022-12-20 02:19] LABS: Influenza A PCR NEGATIVE (Negative); Influenza B PCR NEGATIVE (Negative); Resp Syncy Virus RNA Qual PCR NEGATIVE (Negative); SARS COV2 PCR INHOUSE NEGATIVE (Negative)
[2022-12-20 02:35] LABS: Folate 16.4 ng/mL (> or = 4.0); Vitamin B12 645 pg/mL (200-900)
[2022-12-20 02:58] LABS: Erythrocyte Sedimentation Rate 11 MM/HR (0-20)
[2022-12-20 04:28] VITALS: BP 121/79; PULSE 73; RESP 15; TEMP 36.7; O2SAT 96
[2022-12-20 04:37] LABS: Appearance Urine Clear; Color Urine Yellow; Glucose Urine UA Negative (Negative); Leukocyte Esterase Urine Moderate (2+) (Negative); Nitrite Urine Negative (Negative); PH 6.5 (5.0-9.0); UMIC TRIGGER UACC YES; Urine Blood Trace (Negative); Urine Ketones Trace mg/dL (Negative); Urine Protein Negative (Neg-Trace)
[2022-12-20 04:51] LABS: Bacteria Urine None Seen (None Seen); Hyaline Casts Urine 0-2 /LPF (0-2); RBC Urine 0-2 /HPF (0-2); Squamous Epithelial Cell Urine 0-2 /HPF (0-2); WBC Urine 0-5 /HPF (0-5)
== END 2022-12-20 04:57 | disposition home or self-care (01) ==
PROVIDERS: Student in an Organized Health Care Education/Training Program; Emergency Provider Internal Medicine; PCP Internal Medicine
DX: R53.1 Weakness (principal); G25.9 Extrapyramidal and movement disorder, unspecified; R26.2 Difficulty in walking, not elsewhere classified; R60.0 Localized edema; Z20.822 Contact with and (suspected) exposure to COVID-19; Z20.828 Contact with and (suspected) exposure to other viral communicable diseases; Z79.899 Other long term (current) drug therapy
CPT/HCPCS: 0241U; 70450; 80053; 81001; 82607; 82746; 84484; 85025; 85610; 85652; 86140; 93005; 99284

== ENCOUNTER 2024-03-10 13:54 | Emergency (ER) | payer MEDICARE, SELFPAY ==
--- NOTE | ~2024-03-10 | CT_ITS ---
EXAMINATION: CT head/brain wo IV con CLINICAL INFORMATION: Reason for Exam weakness COMPARISON: CT head without contrast 12/20/2022 TECHNIQUE: Contiguous axial imaging was performed from the skull base to vertex without intravenous contrast. Sagittal and coronal reformatted images were obtained. This CT examination was performed using dose optimization techniques as appropriate, variously including the following: * Automated exposure control * Adjustment of mA and/or kV according to patient size (this includes techniques or standardized protocols for targeted exams where dose is matched to indication/reason for exam; i.e. extremities or head) Use of iterative reconstruction technique DLP: 677.47 mGy-cm FINDINGS: No acute osseous or soft tissue abnormality. Calcified nodule in the superior frontal scalp, likely representing a trichilemmal cyst. The mastoids are clear. Mild to moderate mucosal thickening of the visualized paranasal sinuses. There is no evidence of acute intracranial hemorrhage or territorial infarction. No abnormal mass effect or midline shift is seen. Leslie to white matter differentiation is well preserved. No extra-axial fluid collections are identified. No hydrocephalus. No significant volume loss. Patchy periventricular and deep white matter hypoattenuation is consistent with moderate small vessel ischemic changes. CT/CT head/brain wo IV con IMPRESSION: No acute intracranial abnormality including hemorrhage, mass effect, hydrocephalus, or acute territorial edematous infarction.
[2024-03-10 14:14] VITALS: BP 144/86; PULSE 114; O2SAT 98
[2024-03-10 14:27] VITALS: BP 163/71; PULSE 88; RESP 16; TEMP 36.6; O2SAT 98; BMI 20.5
--- NOTE | 2024-03-10 14:39 | ECG_ITS ---
Test Reason : WEAKNESS Blood Pressure : / mmHG Vent. Rate : 084 BPM Atrial Rate : 084 BPM P-R Int : 152 ms QRS Dur : 064 ms QT Int : 356 ms P-R-T Axes : 088 056 073 degrees QTc Int : 420 ms Normal sinus rhythm Cannot rule out Anterior infarct (cited on or before 20-DEC-2022) Abnormal ECG When compared with ECG of 20-DEC-2022 01:38, No significant change was found Referred By: Dorothy Granda Electronically Signed By:Denny Rodney
--- NOTE | 2024-03-10 14:46 | ED.WEAKNESS ---
HPI - Weakness General Chief complaint: Weakness Stated complaint: Gen'l weakness for years worse over past few days Time Seen by Provider: 03/10/24 14:04 Source: patient and family (Patient's ) Mode of arrival: EMS Limitations: no limitations History of Present Illness ED Provider: Geno Granda PA-C HPI Narrative: 73 yo female with history of progressive weakness and tremors of bilateral upper extremities presents to the ER today for worsening generalized weakness, as the patient was unable to stand from a seated position today. The patient's was at bedside to provide collateral history. They describe her inability to stand as an acute change from her baseline. She does not endorse any associated symptoms. She denies pain, paresthesias, changes in vision, difficulty swallowing, chest pain, abdominal pain, or urinary symptoms. She denies localized weakness. Both the patient and her deny changes in cognition. The patient has been experiencing symptoms of weakness since 2020. states it is increasingly difficult to get the patient to her appointments, as she has difficulty getting in and out of the car. She uses a four-wheeled rollator for ambulation at baseline. States she does not typically have difficulty walking shorter distances on flat surfaces when using rollator. The patient's states they have been trying to get her in to see her PCP, but unable to transport her to appointments due to increasing weakness. She has not yet seen a neurologist. They deny recent falls. Complaint: generalized weakness Onset (ago): hour(s) Duration: progressively worsening Context: history of similar Associated symptoms: denies other symptoms Related Data Home Medications ?Medication ?Instructions ?Recorded ?Confirmed No Known Home Meds 03/10/24 03/10/24 Allergies Allergy/AdvReac Type Severity Reaction Status Date / Time No Known Allergies Allergy Verified 03/10/24 14:28 Review of Systems Review of Systems: Yes all other systems are reviewed and are negative [facility] Past Medical History Medical History Weakness Surgical History No history of previous surgery Family History Family History Mother Cancer Father Diabetes Social History Social History Housing: House Alcohol intake: never Patient Tobacco Use Status: Never used Tobacco Smoked in Last 30 Days: No Second Hand Smoke Exposure: Yes Use of substances other than those prescribed or required for medical reasons: No Advance Directives: Yes Advance Directives on File: Yes Advance Directives Date on File: 06/21/21 Do you have a plan to hurt others: No Plan service: No Current occupational status: retired Physical Exam Vital Signs: Vital Signs: Last Vital Signs Temp 98.2 F 03/12/24 04:00 Pulse 78 03/12/24 04:00 Resp 18 03/12/24 04:00 BP 136/65 03/12/24 04:00 Pulse Ox 98 03/12/24 04:00 O2 Del Method Room Air 03/12/24 04:00 BMI result Body Mass Index 20.5 Appearance: Alert. Oriented X3. No acute distress. Bilateral upper extremity resting tremor. Head: normocephalic, atraumatic. Eyes: Pupils equal, round and reactive to light. ENT: Pharynx normal. Neck: Normal inspection. Neck supple. CVS: Normal heart rate and rhythm. Pulses normal. Respiratory: No respiratory distress. Breath sounds normal. Abdomen: Soft and nontender. Skin: Skin warm and dry. Normal skin color. Normal skin turgor. No rashes. Extremities: No lower extremity edema. No joint swelling. Neuro/psych: Oriented X 3. CN II-XII intact. Normal speech and cognition. Decreased strength of bilateral upper and lower extremities. No localized weakness appreciated. Tongue fasciculations apparent on exam. Course Reevaluation(s) Reevaluation #1: Physician observation begins. PT case management displaced. Patient continues to have chronic weakness. Head CT scan labs normal UA shows mild UTI. Antibiotics were started. Time: 02:34 Reevaluation #2: 03/11/2024 0748 ---> Physician observation continues. Patient continues to be followed by case management. 03/11/2024 08:51PM - physician observation continued. Case Management is having difficulty placing patient as many of the rehabilitation centers refused patient without a Neurology consult. They are requesting a Neurology consult due to possible assessment for tremor, I discussed this with my attending physician, can place neurology consult in order to see if this is a possibility. Discussed with case management. Will continue to follow. 5/22/24 08:20 Physician observation continued, no overnight events reported by nursing. Patient is awaiting neuro consult. CM following for disposition. VSS. Medications Administered Generic Name Dose Route Start Last Admin Trade Name Frejennifer PRN Reason Stop Dose Admin Cefuroxime Axetil 250 mg 03/10/24 21:00 03/11/24 21:05 Cefuroxime Axetil 250 Mg Tablet PO 250 mg BID JOSE Administration Medical Decision Making Medical Decision Making [facility] Narrative: 73 yo female with history of persistent generalized weakness presents to the ER with complaints of worsening weakness and tremors, requiring increased assistance at home. EKG showed no ischemic changes. Urinalysis consistent with possible infection. Not tachycardic, no leukocytosis or fever. Does not meet sepsis criteria. Will start oral antibiotics for now while awaiting urine culture. Anticipate she will require physical therapy evaluation and case management consultation for potential placement/acute rehab. Differential Diagnosis Differential Diagnoses: The differential diagnosis associated with the presentation includes Movement disorder, CVA, MS, dementia, Parkinson's disease, deconditioning Admission/Observation Consideration of admission/observation: Escalation of care including admission/observation considered Lab Data [facility] Lab Attestation statement: I reviewed the patient's lab results. No leukocytosis, no anemia. 03/10/24 16:00 03/10/24 16:00 Labs: Lab Results 03/10/24 03/10/24 03/11/24 Range/Units 15:51 16:00 09:22 WBC 5.0 (4.8-10.8) X10*3/uL RBC 4.04 L (4.20-5.50) X10*6/uL Hgb 12.9 (12.0-16.0) g/dl Hct 38.1 (37.0-47.0) % MCV 94.3 (80.0-98.0) fL MCH 31.9 (27.0-33.0) pg MCHC 33.9 (31.0-35.0) g/dl RDW 13.2 (11.0-16.0) % Plt Count 229 (160-400) X10*3/uL MPV 9.8 (9.4-12.3) fL Immature Gran % (Auto) 0.2 (0.0-0.4) % Neut % (Auto) 75.7 H (45-73) % Lymph % (Auto) 16.1 L (20-40) % [place] % (Auto) 6.4 (2-11) % Eos % (Auto) 1.0 (0-4) % Baso % (Auto) 0.6 (0-2) % Lymph # (Auto) 0.8 L (1.2-4.9) X10*3/uL [place] # (Auto) 0.3 (0.1-1.2) X10*3/uL Eos # (Auto) 0.1 (0.0-0.4) X10*3/uL Baso # (Auto) 0.0 (0.0-0.2) X10*3/uL Abs Immat Gran (auto) 0.01 (0.00-0.03) X10*3/uL Absolute Neuts (auto) 3.8 (2.0-8.3) x10*3/uL Absolute Nucleated RBC 0.000 (0.0-0.012) X10*3/uL Nucleated RBC % (auto) 0.0 (0.0-0.2) /100WBC Sodium 141 (135-145) mmol/L Potassium 4.1 (3.3-5.1) mmol/L Chloride 105 (96-108) mmol/L Carbon Dioxide 26 (22-29) mmol/L Anion Gap 14 (12-20) BUN 21 H (9-16) mg/dL Creatinine 0.70 (0.5-1.4) mg/dL Estim Creat Clear Calc 66.9 Estimated GFR > 60 Random Glucose 98 (60-115) mg/dL Calcium 9.7 (8.4-10.2) mg/dL Magnesium 2.2 (1.6-2.6) mg/dL Total Bilirubin 0.7 (0.0-1.0) mg/dL Direct Bilirubin 0.3 (0.0-0.5) mg/dL AST 24 (5-31) U/L ALT 11 (0-31) U/L Alkaline Phosphatase 43 (39-117) U/L Troponin I High Sens 3.1 (<3.5-17.0) ng/L Total Protein 7.1 (6.5-8.0) g/dL Albumin 4.1 (3.5-5.0) g/dL TSH 0.69 (0.32-4.0) uIU/mL Urine Color Yellow Urine Appearance Clear Urine pH 6.5 (5.0-9.0) Ur Specific [place] 1.015 (1.005-1.025) Urine Protein Negative (Neg-Trace) mg/dL Urine Glucose (UA) Negative (Negative) mg/dL Urine Ketones 15 (Negative) mg/dL Urine Blood Trace H (Negative) Urine Nitrite Negative (Negative) Ur Leukocyte Esterase Moderate (2+) H (Negative) Urine RBC 3-5 H (0-2) /HPF Urine WBC 6-10 H (0-5) /HPF Ur Squamous Epith Cells 3-5 (0-2) /HPF Urine Bacteria None Seen (None Seen) Hyaline Casts 0-2 (0-2) /LPF COVID-19 (VLADIMIR) Negative (Negative) COVID-19 Clin Com See Note Independent Interpretation I performed an independent interpretation of an: EKG Interpretation: EKG revealed normal sinus rhythm. Ventricular rate of 84 BPM. HI interval 152 ms. QRS duration 64 ms. Independent Historian Clinical information obtained from an independent historian. History obtained from or confirmed by: Spouse (Patient's ) and EMS External Record Review External record reviewed: Inpatient record, Office record and Prior outpatient labs Tests considered The following testing was considered but not selected: CT of the head was considered however exam is nonfocal and patient has history of similar presentation. Prescription Management I considered prescription management with: Antibiotic Chronic Conditions Patient?s care impacted by: Other (anxiety and depression) Social Determinants Patient?s care significantly limited by Social Determinants of Health including: Problems related to primary support group Discharge Plan Discharge Clinical Impression: Weakness, Acute UTI Patient Disposition: Still a Patient Prescriptions: No Action No Known Home Meds Print Language: Icelandic
[2024-03-10 15:56] LABS: Appearance Urine Clear; Color Urine Yellow; Glucose Urine UA Negative (Negative); Leukocyte Esterase Urine Moderate (2+) (Negative); Nitrite Urine Negative (Negative); PH 6.5 (5.0-9.0); Specific Gravity - Urine 1.015 (1.005-1.025); UMIC TRIGGER UACC YES; Urine Blood Trace (Negative); Urine Ketones 15 mg/dL (Negative); Urine Protein Negative (Neg-Trace)
[2024-03-10 16:01] LABS: Bacteria Urine None Seen (None Seen); Hyaline Casts Urine 0-2 /LPF (0-2); UACC Culture Trigger YES
[2024-03-10 16:03] LABS: MANUAL DIFF FLAG NO
[2024-03-10 16:07] LABS: Basophils Percent Auto 0.6 % (0-2); Eosinophils Absolute Auto 0.1 X10*3/uL (0.0-0.4); Hematocrit 38.1 % (37.0-47.0); Hemoglobin 12.9 g/dl (12.0-16.0); Imm Gran Abs Auto 0.01 X10*3/uL (0.00-0.03); Imm Gran Pct Auto 0.2 % (0.0-0.4); Lymphocytes Absolute Auto 0.8 X10*3/uL (1.2-4.9); Lymphocytes Percent Auto 16.1 % (20-40); Mean Corpuscular HGB Conc 33.9 g/dl (31.0-35.0); Mean Corpuscular Hemoglobin 31.9 pg (27.0-33.0); Mean Corpuscular Volume 94.3 fL (80.0-98.0); Mean Platelet Volume 9.8 fL (9.4-12.3); Monocytes Absolute Auto 0.3 X10*3/uL (0.1-1.2); Monocytes Percent Auto 6.4 % (2-11); Neutrophils Absolute Auto 3.8 x10*3/uL (2.0-8.3); Neutrophils Percent Auto 75.7 % (45-73); Platelet Count 229 X10*3/uL (160-400); Red Blood Count 4.04 X10*6/uL (4.20-5.50); Red Cell Distribution Width 13.2 % (11.0-16.0)
[2024-03-10 16:27] VITALS: BP 154/67; PULSE 86; RESP 18; TEMP 37.1; O2SAT 95
[2024-03-10 16:35] LABS: Alanine Aminotransferase 11 U/L (0-31); Albumin Level 4.1 g/dL (3.5-5.0); Alkaline Phosphatase 43 U/L (39-117); Anion Gap 14 (12-20); Aspartate Amino Transferase 24 U/L (5-31); Bilirubin Direct 0.3 mg/dL (0.0-0.5); Bilirubin Total 0.7 mg/dL (0.0-1.0); Blood Urea Nitrogen 21 mg/dL (9-16); Calcium 9.7 mg/dL (8.4-10.2); Carbon Dioxide 26 mmol/L (22-29); Chloride 105 mmol/L (96-108); Creatinine Clr Calc Pharmacy 66.9; Estimated Glomerular Filt Rate > 60; Glucose Random 98 mg/dL (60-115); Magnesium 2.2 mg/dL (1.6-2.6); Potassium 4.1 mmol/L (3.3-5.1); Sodium 141 mmol/L (135-145); Total Protein 7.1 g/dL (6.5-8.0)
[2024-03-10 16:36] LABS: Troponin-I High Sensitivity 3.1 ng/L (<3.5-17.0)
[2024-03-10 16:50] LABS: TSH reflex Free T4 0.69 uIU/mL (0.32-4.0)
[2024-03-10 21:03] VITALS: BP 158/63; PULSE 80; RESP 18; TEMP 37.2; O2SAT 95
--- NOTE | 2024-03-10 21:31 | PC.NURSE ---
Aida from case management at bedside.
[2024-03-10] MEDS: cefuroxime axetiL 250 MG TABLET PO (21:37)
--- NOTE | 2024-03-10 21:43 | MHC.CM.ED ---
CM met with patient at the request of Edwin HALL. Pt is A&Ox4. C/O weakness and tremors, worsening today. States she had this in 06/20/21 and went to [facility] for rehab. Pt and tell CM that was very helpful. Pt has difficulty with mobility and has difficulty leaving her home for appointments. PCP is Dr. Palma. HCP on file. HCP#1/ Carlos Turner ([phone]). HCP#2/daughter Whit Turner ([phone]). Pt and family are requesting rehab at [facility] again. PT is ordered for the morning. Referrals made to acute rehabs with [facility] as first choice. Pt lives with her . Has no services and uses a wheeled walker. Pt also has a UTI and will be treated with antibiotics. CM will follow for discharge planning.
--- NOTE | 2024-03-10 22:07 | PC.NURSE ---
Med rec done, Pt and significant other able to confirm Pt does not take any home meds.
[2024-03-10 23:40] VITALS: BP 126/55; PULSE 82; RESP 18; TEMP 37.4; O2SAT 95
[2024-03-11] VITALS (10 sets, daily range): BP systolic 120–163; BP diastolic 53–77; PULSE 74–86; RESP 14–18; TEMP 36.5–37.1; O2SAT 94–98
[2024-03-11] MEDS: cefuroxime axetiL 250 MG TABLET PO ×2 (08:37→21:05)
--- NOTE | 2024-03-11 08:38 | PC.NURSE ---
patient is sitting up in bed, linens dry and clean. patient is awake and alert, VSS. skin dry and intact. patient medicated per DEC. respirations equal and unlabored patient ate aprox 75% of her breakfast, requested tea. patient brought tea, given phone to all her .
[2024-03-11 09:41] LABS: COVID-19 Test Negative (Negative); IDNOW Serial# 08D9AD1C
--- NOTE | 2024-03-11 17:27 | MHC.CM.ED ---
Addendum entered by Sonja Acevedo 03/11/24 20:52: Provider to order neuro consult. CM spoke at length with alone at his request. aware that even with the neuro consult, if [facility] declines the patient, then we have to plan a safe discharge. That could include [facility]NA w home PT, private pay STR or private pay home help. Will await neuro consult. Original Note: CM spoke at length with patient and her regarding acute rehab choices. They were informed that both [facility] and [facility] are unable to offer a bed. [facility] requested a neurological work up prior to any rehab. [facility] is reviewing and has requested a neuro consult. Reviewed options to private pay for STR and home care. Reviewed possible [facility]NA home services, however patient has not seen her PCP since 2020. Pt and want a neuro consult. CM explained that neuro consults are usually completed on an outpatient basis and that CM would request a consult from the provider. Pt is very fearful of any possible diagnosis. CM spoke with patient and family at length regarding importance of neurology and PCP follow ups. Stressed need for a diagnosis to explain her symptoms. Then hopefully some treatment can begin. CM explained that this has been ongoing since 2020, so it's not an acute problem. CM spoke with provider regarding above. Keara HALL will speak with Dr. Simms. Patient and family willing to remain in ED for consult. CM explained that any outpatient follow up would need to be completed as an outpatient, not as an ED patient. tells CM he has funds for help at home or STR, however, they do not want STR at this time.
--- NOTE | 2024-03-11 18:43 | PC.NURSE ---
ED techs cleaned patient up, new linens changed on bed.
[2024-03-12] VITALS: BP 155/76; PULSE 95; RESP 18; TEMP 36.7; O2SAT 95
[2024-03-12 04:00] VITALS: BP 136/65; PULSE 78; RESP 18; TEMP 36.8; O2SAT 98
[2024-03-12] MEDS: cefuroxime axetiL 250 MG TABLET PO ×2 (09:06→21:42)
--- NOTE | 2024-03-12 10:44 | MHC.CM.ED ---
Addendum entered by Katrin Silva 03/12/24 14:58: Neuro consult complete. Uploaded to [facility]. Original Note: Patient remains in ER. Neuro consult is ordered and pending. [facility] aware and waiting for consult. Continue to monitor for d/c needs.
[2024-03-12 12:28] VITALS: BP 161/72; PULSE 86; RESP 16; TEMP 37.2; O2SAT 95
--- NOTE | 2024-03-12 12:58 | PC.NURSE ---
Pt denies any pain or complaints at this time. Remains alert and talking with at bedside. VSS.
[2024-03-12 14:29] VITALS: BP 130/70; PULSE 97; RESP 18; TEMP 36.6; O2SAT 96
--- NOTE | 2024-03-12 14:29 | P.CNNE_ITS ---
History of Present Illness Data of Consult Service Date: 03/12/24 Primary Care Provider: Joshua Palma MD HPI Reason for consult: Trouble walking and tremors This is a 73 yo female with history of progressive weakness and intermittent tremors of bilateral upper extremities presented to the ER today for worsening generalized weakness, as the patient was unable to stand from a seated position today. She is a poor historian but the provides adetailed Hx. She has inability to stand as a realtively acute change from her baseline. She does not endorse any associated symptoms. She denies pain, headache, paresthesias, changes in vision, difficulty swallowing, chest pain, abdominal pain, or urinary symptoms. She denies localized weakness. Both the patient and her deny changes in cognition. The patient has been experiencing symptoms of weakness since 2020, but did well after PT . states it is increasingly difficult to get the patient to her appointments, as she has difficulty getting in and out of the car. She uses a four-wheeled rollator for ambulation at baseline. 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 No hydrocephalus or stroke. This was also confirmed on an MRI a few years earlier Review of Systems 2 Review of Systems: Yes all other systems are reviewed and are negative PMF Past Medical History Medical History Weakness Family History Family History Mother Cancer Father Diabetes Surgical History Surgical History No history of previous surgery Social History Social History Housing: House Alcohol intake: never Patient Tobacco Use Status: Never used Tobacco Smoked in Last 30 Days: No Second Hand Smoke Exposure: Yes Use of substances other than those prescribed or required for medical reasons: No Advance Directives: Yes Advance Directives on File: Yes Advance Directives Date on File: 06/21/21 Do you have a plan to hurt others: No Plan service: No Current occupational status: retired Meds Allergies Allergy/AdvReac Type Severity Reaction Status Date / Time No Known Allergies Allergy Verified 03/10/24 14:28 Active Medications: Current Medications Cefuroxime Axetil (Cefuroxime Axetil 250 Mg Tablet) 250 mg PO BID JOSE Last Admin: 03/12/24 09:06 Dose: 250 mg Home Medications ?Medication ?Instructions ?Recorded ?Confirmed ?Last Taken ?Type No Known Home Meds 03/10/24 03/10/24 Unknown History Physical Exam 2 Vital Signs: Vital Signs: Last Vital Signs Temp 98.9 F 03/12/24 12:28 Pulse 86 03/12/24 12:28 Resp 16 03/12/24 12:28 BP 161/72 H 03/12/24 12:28 Pulse Ox 95 03/12/24 12:28 O2 Del Method Room Air 03/12/24 12:28 BMI result Body Mass Index 20.5 Neuro: Other: She's alert, pleasant and cooperative and oriented to month, day and year but not to date she is oriented to person and place. She has mild bradykinesia and some decreased facial expression. There is mild increase in tone on the right side. Cranial nerves II through IV were normal. She has intermittent tremulousness, but no definite resting tremor. Strength is generally 4+ to 5 minus/5 diffusely with normal reflexes and flexor plantar responses. Results Labs 03/10/24 16:00 03/10/24 16:00 Microbiology Microbiology Results: Microbiology 03/10/24 16:02 Urine clean catch - Urine acosta top Urine Culture - Final Assessment and Plan (1) Acute UTI: Status: Acute (2) Weakness: Status: Acute Some of for worsening of general strength could be related to the UTI that she currently has. She has subtle parkinsonian features with decreased expression and slight increase in tone on one side. She doesn't have the typical resting tremor, but more intermittent tremulousness. She also has extensive white matter disease, which could be contributing to her balance and gait problems. I personally reviewed her Ct images Recommendation: trial of carbidopa levodopa 25/100 3 times a day. Aggressive physical therapy for strengthening and ambulation and gait and balance training. Procedures Date of Service Date of Service: 03/12/24
--- NOTE | 2024-03-12 19:32 | PC.NURSE ---
This RN assumed pt care @ 1900. Pt ca&ox3, no signs of distress. Pts family at bedside. Pt ate 100% of dinner. Pt denies pain at this time. Plan of care ongoing.
--- NOTE | 2024-03-12 21:12 | PC.NURSE ---
Pt requesting meds for sleep. Provider Keara notified and aware. No new orders at this time. Plan of care ongoing.
--- NOTE | 2024-03-12 21:59 | PC.NURSE ---
Pt medicated per dec. Lights dimmed per pt request Plan of care ongoing.
[2024-03-13 02:25] VITALS: BP 154/73; PULSE 87; RESP 18; O2SAT 97
--- NOTE | 2024-03-13 03:27 | PC.NURSE ---
Pt confused and agitated with rn hedis. Pt attempting to get oob. Pt assisted back into bed for comfort by this RN and pharmacy resource tech robin & Yan. Bed alarm on. Plan of care ongoing.
[2024-03-13] MEDS: cefuroxime axetiL 250 MG TABLET PO ×2 (09:51→22:04)
--- NOTE | 2024-03-13 10:42 | MHC.CM.ED ---
Addendum entered by Katrin Silva 03/13/24 16:21: [facility] is able to offer a bed. Patient can leave tomorrow 03/14 at 11am. Rigo ENRIQUEZ booked. [facility] with chart. Patient, Una Gonzalez RN and Marla HALL aware. Addendum entered by Katrin Silva 03/13/24 15:20: [facility] does not have a bed to offer. [facility] has denied patient. T/W spoke with Brandee at [facility]. She will re-look at referral. Original Note: Patient remains in ER. Clem requested additional physical therapy note. PT made aware. Continue to monitor for d/c needs.
[2024-03-13 10:49] VITALS: BP 149/76; PULSE 99; RESP 17; O2SAT 96
[2024-03-13] MEDS: Carbidopa/Levodopa 25/100 TABLET 1 TAB PO ×3 (11:10→22:04)
[2024-03-13 17:53] VITALS: BP 108/67; PULSE 89; RESP 16; O2SAT 97
[2024-03-13 19:23] VITALS: BP 147/78; PULSE 95; RESP 18; TEMP 36.7; O2SAT 97
--- NOTE | 2024-03-13 19:42 | MHC.EDTECH ---
Patient given dinner tray
--- NOTE | 2024-03-13 20:08 | MHC.EDTECH ---
Patient bed pad changed and repositioned/ new purwick applied
--- NOTE | 2024-03-14 02:45 | PC.NURSE ---
assumed care at 1900 03/13 pt sleeping, left after feeding her.
[2024-03-14 06:05] VITALS: BP 141/72; PULSE 73; RESP 16; TEMP 36.7; O2SAT 97
[2024-03-14] MEDS: cefuroxime axetiL 250 MG TABLET PO (07:49)
[2024-03-14] MEDS: Carbidopa/Levodopa 25/100 TABLET 1 TAB PO (07:49)
--- NOTE | 2024-03-14 08:01 | PC.NURSE ---
patient a&ox3, vss, meds whole with water, pure wick patient/draining, lungs clear/diminished, no current c/o pain/discomfort, call bazzi within reach, will continue to monitor
--- NOTE | 2024-03-14 08:40 | PC.NURSE ---
this nurse attempted calling [facility] to give report, upon them answering- and they identified as [facility]- I was then put on hold and transferred to 911 dispatch.
[2024-03-14 11:43] VITALS: BP 138/76; PULSE 78; RESP 16; TEMP 36.7; O2SAT 96
== END 2024-03-14 11:44 | disposition other institution (70) ==
PROVIDERS: Physician Assistant; Emergency Provider Emergency Medicine; PCP Internal Medicine
DX: R53.1 Weakness (principal); N39.0 Urinary tract infection, site not specified; R25.1 Tremor, unspecified; F41.9 Anxiety disorder, unspecified; Z11.52 Encounter for screening for COVID-19
CPT/HCPCS: 36415; 70450; 80048; 80076; 81001; 83735; 84443; 84484; 85025; 87086; 87635; 93005; 97162; 97530; 99285

== ENCOUNTER → 2024-03-10 14:39 | Outpatient (BNV) | payer MEDICARE, SELFPAY | PROVIDERS: Emergency Provider Emergency Medicine; PCP Internal Medicine; Visit Provider Internal Medicine Cardiovascular Disease | DX: R94.31 Abnormal electrocardiogram [ECG] [EKG] (principal) | CPT/HCPCS: 93010 ==

== ENCOUNTER → 2024-03-10 14:44 | Outpatient (BNV) | payer MEDICARE, SELFPAY | PROVIDERS: Emergency Provider Emergency Medicine; PCP Internal Medicine; Visit Provider Psychiatry & Neurology Neurology | DX: N39.0 Urinary tract infection, site not specified (principal); R53.1 Weakness | CPT/HCPCS: 99282 ==

== ENCOUNTER 2024-05-16 14:31 | Outpatient (AMB) | payer MEDICARE, SELFPAY ==
[2024-05-16 14:55] VITALS: BP 160/84; PULSE 90; O2SAT 98; BMI 20.3
--- NOTE | 2024-05-16 14:55 | MHC.PC.OV ---
Vital Signs 05/16/24 14:55 Height 5 ft 6 in Weight 125 lb 10.616 oz BMI 20.3 BP 160/84 H Blood Pressure Location Lt brachial Position Sitting Pulse 90 Pulse Source Pulse Oximeter Pulse Oximetry (%) 98 Oxygen Delivery Method Room Air Intake Visit Reasons: [facility] 03/31 Blow Torch Burner Required: No Accompanied by: Spouse Allergies No Known Allergies Allergy (Verified 05/16/24 15:29) Medication List - Last Reconciled 05/16/24 by Joshua Palma MD carbidopa-levodopa 25-100 mg (Sinemet) 1 tab PO QID 30 days mirtazapine 7.5 mg (1/2 x 15 mg) PO BEDTIME 60 days Tobacco use date assessed: 05/16/24 Fall risk assessment: No Falls in past year Last assessed Fall Risk: 05/16/24 Dental Screening Dental Screen Date: 05/16/24 Did you have a dental problem in the last 6 months where you did not have access to dental care?: No Was dental information given to patient?: Patient has dentist HPI [facility] 03/31 HPI Details Patient comes in today for her HDF follow up visit Was last seen by here here almost 3 years ago now on 07/06/2021 Patient was brought to the ER a couple of months ago on 03/12/2024 for worsening generalized weakness when she could not even stand up from a seated position Workup done were mostly unremarkable but her head CT revealed severe extensive microvascular disease She was seen by Neurology and was diagnosed with Parkinson's disease and started on Sinemet Patient was then sent to short-term rehab, where she spent the next couple of weeks, before being discharged home on 03/31/2024 She is currently still continuing to receive PT and OT at home and her states has been doing a lot better since she was referred physical therapy Patient states that feels okay She denies any headaches or dizziness Denies any chest pains, no shortness of breath No nausea / vomiting, no abdominal pain No change in bowel habits noted REPLACED BY [facility] Medical History (Updated 05/17/24 @ 04:52 by Joshua Palma MD) Anxiety and depression Parkinson disease Surgical History No history of previous surgery Family History Mother Cancer Father Diabetes Social History Housing: House Alcohol intake: never Patient Tobacco Use Status: Never used Tobacco e-Cigarette/Vaping Use: Never Used Second Hand Smoke Exposure: Yes Advance Directives Date on File: 06/21/21 service: No Current occupational status: retired Cognitive needs: No Hearing needs: No Vision needs: No Questionnaire PHQ-9 Over the last 2 weeks, how often have you been bothered by any of the following problems? 1. Little interest or pleasure in doing things: several days 2. Feeling down, depressed, or hopeless: several days 3. Trouble falling or staying asleep, or sleeping too much: several days 4. Feeling tired or having little energy: several days 5. Poor appetite or overeating: several days 6. Feeling bad about yourself - or that you are a failure or have let yourself or your family down: several days 7. Trouble concentrating on things, such as reading the newspaper or watching television: not at all 8. Moving or speaking so slowly that other people could have noticed. Or the opposite - being so fidgety or restless that you have been moving around a lot more than usual: not at all 9. Thoughts that you would be better off or of hurting yourself in some way: not at all Total score: 6 Depression Screening Interpretation: Positive Depression Screening Follow-up: Existing condition and In treatment Depression Screening Done: Yes 20059 - PHQ-9 Billing: Yes Source: Developed by Drs. Carlos Mcmanus, Anca Alvarez, Bakari Giraldo and colleagues, with an educational esmer from [employer]. Thrive Questionnaire Date Thrive assessed: 05/16/24 I am a: Patient What is your living situation today?: I have a steady place to live Within the past 12 months, did the food you bought not last and you didn't have the money to get more?: Never true Within the past 12 months, did you worry whether your food would run out before you got money to buy more?: Never true Do you have trouble paying for medicines?: No Do you have trouble getting transportation to medical appointments?: No Do you have trouble paying your heating and electricity bill?: No Do you have trouble taking care of your child, family member or friend?: No Do you have trouble with day-to-day activities such as bathing, preparing meals, shopping, managing finances, etc.?: No Are you currently unemployed and looking for a job?: No Are you interested in more education?: No Please select the resources that you would like help with: None Currently or been in a relationship where the following occur: No concerns reported THRIVE Score: 0 AUDIT C Alcohol Use Questionnaire (AUDIT-C) 1. How often do you have a drink containing alcohol?: Never 3. How often do you have six or more drinks on one occasion?: Never Total Score: 0 Score Reviewed/Action Taken: Yes CAMILO-7 AMB Questionnaire CAMILO-7 Date CAMILO - 7 assessed: 05/16/24 Feeling nervous, anxious, or on edge: 0 = Not at all Not being able to stop or control worryin = Not at all Worrying too much about different things: 0 = Not at all Trouble relaxin = Not at all Being so restless that it is hard to sit still: 0 = Not at all Becoming easily annoyed or irritable: 0 = Not at all Feeling afraid as if something awful might happen: 0 = Not at all Total CAMILO-7 score (0-4 normal; 5-9 mild; 10-14 moderate; 15-21 severe): 0 Source: Developed by Drs. Carlos Mcmanus, Anca Alvarez, Bakari Giraldo and colleagues, with an educational esmer from [employer]. CAMILO-7 Assessment Billing CAMILO-7 Assessment Tool: CAMILO-7 Assessment 21471 Review of Systems Const Denies chills, Reports fatigue, Denies fever(s) and Denies headache(s) ENT Denies dysphagia, Denies dizziness, Denies otalgia, Denies headache(s), Denies neck pain, Denies odynophagia and Denies sore throat Card Denies chest pain, Denies palpitations and Denies dyspnea Resp Denies cough and Denies dyspnea GI Denies abdominal pain, Denies constipation, Denies dysphagia, Denies heartburn, Denies diarrhea, Denies nausea, Denies odynophagia and Denies vomiting Denies difficulty voiding, Denies nocturia, Denies dysuria and Denies urinary urgency Musc Reports muscle weakness, Denies neck pain and Reports stiffness Skin/Breast Denies rash Neuro Denies dizziness and Denies headache(s) Endo Reports fatigue and Denies palpitations Physical exam (Primary Care) Vital Signs: Last Vital Signs Pulse 90 05/16/24 14:55 BP 160/84 H 05/16/24 14:55 Pulse Ox 98 05/16/24 14:55 Oxygen Delivery Method Room Air 05/16/24 14:55 BMI result Body Mass Index 20.3 Tobacco/Smoking Status: Tobacco use Status Tobacco use date assessed 05/16/24 05/16/24 14:57 Patient Tobacco Use Status Never used Tobacco 05/16/24 14:57 e-Cigarette/Vaping Use Never Used 05/16/24 14:57 PHQ-9: PHQ-9 Score PHQ-9: Total score 6 05/16/24 15:31 Depression Screening Interpretation: Positive Depression Screening Follow-up: Existing condition and In treatment Thrive Assessment: Date of Thrive Assessment Date Thrive assessed 05/16/24 05/16/24 14:57 Currently or been in a relationship where the following occur: No concerns reported Const General: no acute distress and alert Limitations: wheelchair HENMT Ears: TM's normal bilaterally and EAC's normal Throat: Yes posterior oropharynx normal and Yes tonsils normal (no TP congestion) Neck Neck: Yes no lymphadenopathy and Yes supple Thyroid: Thyroid normal Resp Auscultation: clear to auscultation bilaterally, no rales and no wheezes Cardio Rate: regular rate Rhythm: regular rhythm Heart sounds: no murmurs GI Palpation (GI): Soft to palpation and nontender Auscultation: normal bowel sounds General: Yes no CVA tenderness Back/Spine/Pelvis Back: no CVA tenderness Skin Rashes: no rashes Neuro Gait exam (Neuro): Assistive device used (wheelchair) Motor exam (neuro): no tremors Extrem General: Yes no clubbing, cyanosis or edema Assessment and Plan Assessment & Plan (1) Parkinson disease: Code(s): G20.A1 - Parkinson's disease without dyskinesia, without mention of fluctuations Qualifiers: Dyskinesia presence: without dyskinesia Fluctuating manifestations: with fluctuating manifestations Qualified Code(s): G20.A2 - Parkinson's disease without dyskinesia, with fluctuations Plan: Continue Sinemet 25-100 mg QID Continue home PT/OT Will refer back to neurology for continuing management and follow up (2) Anxiety and depression: Code(s): F41.9 - Anxiety disorder, unspecified; F32.9 - Major depressive disorder, single episode, unspecified Plan: Continue Mirtazapine 7.5 mg Q HS Orders: Referrals Neurology Referral G20.A1 - Parkinson's disease without dyskinesia, without mention of fluctuations Coding Level of Care Code Est Pt Level 4 (23538) Diagnoses Parkinson's disease without dyskinesia, with fluctuating manifestations G20.A2 Dyskinesia presence: without dyskinesia Fluctuating manifestations: with fluctuating manifestations Anxiety and depression F41.9; F32.9 Additional Codes CAMILO-7 Assessment Billing - CAMILO-7 Assessment Tool: CAMILO-7 Assessment 38237 ([id number])
== END 2024-05-16 15:48 | disposition home or self-care (01) ==
PROVIDERS: PCP Internal Medicine; Visit Provider Internal Medicine
DX: G20.A2 Parkinson's disease without dyskinesia, with fluctuations (principal); F41.9 Anxiety disorder, unspecified; F33.9 Major depressive disorder, recurrent, unspecified
CPT/HCPCS: 99214

== ENCOUNTER 2025-06-17 15:29 | Outpatient (AMB) | payer MEDICARE, SELFPAY ==
--- NOTE | 2025-06-17 15:35 | A.OFFVIS_ITS ---
Intake Visit Reasons: 4 month Accompanied by: Spouse Allergies No Known Allergies Allergy (Verified 06/17/25 15:48) Medication List - Last Reconciled 06/17/25 by Jennifer Martinez CNP carbidopa-levodopa 25-100 mg (Sinemet) 1.5 tabs q4h and 2 tabs at bedtime for total of 5 doses/day; mirtazapine 7.5 mg (1/2 x 15 mg) PO BEDTIME 60 days HPI Comments Details: Tremors were better after adjusting timing of carbidopa-levodopa doses. Taking 1.5 tabs at 7am, 11am, 3pm, 7pm, and 2 tabs at bedtime around 11pm for total of 8 tabs/day. Occasionally, gets a little more shaky before next dose due. No difficulty eating, drinking, or swallowing. Walking at home with walker, no falls. Able to get up from chair with arms without assistance. Was having symptoms of tremors returning after 4 hrs, about an hour before her usual dose was due, taking Sinimet 25/100 8 tabs/day. Has had progressive weakness and intermittent tremors of bilateral upper extremities. Seen at [facility] in February 2024 for worsening generalized weakness, unable to stand from a seated position. She is a poor historian but, her provides a detailed history. She denies pain, headache, paresthesias, changes in vision, difficulty swallowing, or changes in cognition. She has been depressed. She has been experiencing symptoms of weakness since 2020, but did well after PT . states it is increasingly difficult to get the patient to her appointments, as she has difficulty getting in and out of the car. She uses a four-wheeled rollator for ambulation at baseline. CT brain and MRI showed extensive white matter microvascular disease in 2020. No hydrocephalus or stroke. She was started on Crabidopa levodopa and saw a modest improvement. She gets around the house now with a walker and sleeps on her back, can get herself out of the bed to the walker and to the bathroom with some help from the . She has some difficulty getting up from a chair. Her tremors are predominantly in the left hand and just starting in the right hand. Speech and swallowing are normal. She doesn't do much around the house. [facility] Medical History (Updated 05/17/24 @ 04:52 by Joshua Palma MD) Anxiety and depression Parkinson disease Surgical History No history of previous surgery Family History Mother Cancer Father Diabetes Social History Housing: House Alcohol intake: never Patient Tobacco Use Status: Never used Tobacco e-Cigarette/Vaping Use: Never Used Second Hand Smoke Exposure: Yes Advance Directives Date on File: 06/21/21 service: No Current occupational status: retired Cognitive needs: No Hearing needs: No Vision needs: No Review of Systems Const Denies chills, Denies daytime sleepiness, Denies difficulty sleeping, Denies fatigue, Denies fever(s), Denies frequent falls, Denies headache(s), Denies increased appetite, Denies poor appetite, Denies snoring, Reports weakness, Denies weight gain and Denies weight loss Eyes Denies loss of vision ENT Denies vertigo, Denies dizziness, Denies headache(s) and Denies neck pain Card Denies chest pain at rest, Denies chest pain with activity, Denies syncope, Denies leg edema, Denies palpitations, Denies dyspnea and Denies dyspnea on exertion Resp Denies cough, Denies dyspnea, Denies dyspnea on exertion and Denies snoring GI Denies abdominal pain, Denies constipation, Denies heartburn, Denies diarrhea and Denies nausea Denies urinary frequency, Denies urinary incontinence and Denies urinary urgency Musc Denies abnormal gait, Denies back pain, Denies myalgias, Denies arthralgias, Denies neck pain, Denies numbness and Denies tingling Neuro Denies abnormal gait, Denies vertigo, Denies dizziness, Denies syncope, Denies frequent falls, Denies headache(s), Denies lack of coordination, Denies loss of vision, Denies memory loss, Denies numbness, Denies Other visual disturbances, Denies restless legs, Denies seizure-like activity, Denies tingling, Denies paresthesias, Reports tremor(s) and Reports weakness Psych Reports anxiety, Reports depression, Denies auditory hallucinations, Denies memory loss and Denies visual hallucinations Endo Denies fatigue and Denies palpitations Physical Exam Const Other: General Appearance:? normal, in no acute distress. Heart:? S1, S2 normal, no murmurs. Lungs:? clear anteriorly and posteriorly. Musculoskeletal:? normal. Extremities:? no edema. Psych:? alert, oriented, cognitive function intact, cooperative with exam. Neuro Other: Abnormal Neurological Findings:?In wheelchair. Decreased facial expression and blinking frequency. Mild, intermittent resting parkinsonian tremor LUE.? Increased tone and cogwheeling LUE.?Mild generalized weakness.?Able to walk with contact guidance with an upright posture. She shuffles her feet when she walks and has worn out the right front of her sneakers.?She turns en bloc. She has great fear of falling.? Mental Status: alert and oriented X 3. Normal attention, orientation, memory, and affect. Cranial Nerves: Pupils are equal, round, and reactive to light. External ocular muscles are intact. Visual myrick are full, no ptosis. Face is symmetrical, no facial weakness or droop. Facial sensations are normal. Tongue protrudes in midline. Palate elevates symmetrically. Shoulder shrugging is normal Motor Examination: Normal muscle tone, bulk and strength. No atrophy or fasciculations. No drift of the extended upper extremities. DTR 2+. Plantars are flexor. Sensory Exam: Normal light touch, temperature, pinprick, vibration, and joint- position sensations. Rhomberg sign is absent. Coordination: No ataxia. No titubation. Gait Exam: As above. Cerebellar Signs: [id number] is okay. Extrapyramidal System: As above. Speech: Normal. Assessment & Plan Assessment & Plan (1) Parkinson disease: Code(s): G20.A1 - Parkinson's disease without dyskinesia, without mention of fluctuations Category: Medical Qualifiers: Dyskinesia presence: without dyskinesia Fluctuating manifestations: with fluctuating manifestations Qualified Code(s): G20.A2 - Parkinson's disease without dyskinesia, with fluctuations Plan: Continue carbidopa-levodopa 25-100mg 1.5 tabs at 7am, 11am, 3pm, 7pm, and 2 tablets at bedtime (total of 5 doses/day, 8 tabs/day). Continue mirtazapine 15mg 1/2 tablet at bedtime. Medications: Changed From carbidopa-levodopa 25-100 mg (Sinemet) 1.5 tabs q4h and 2 tabs at bedtime for total of 5 doses/day; To carbidopa-levodopa 25-100 mg (Sinemet) 1.5 tabs at 7am, 11am, 3pm, 7pm, and 2 tabs at bedtime; 720 tabs 1RF 90 days From mirtazapine 7.5 mg (1/2 x 15 mg) PO BEDTIME 60 days 30 tabs 1RF To mirtazapine 7.5 mg (1/2 x 15 mg) PO BEDTIME 45 tabs 1RF 90 days Coding Level of Care Code Est Pt Level 4 (32527) Diagnoses Parkinson's disease without dyskinesia, with fluctuating manifestations G20.A2 Dyskinesia presence: without dyskinesia Fluctuating manifestations: with fluctuating manifestations
== END 2025-06-17 16:09 | disposition home or self-care (01) ==
LOC: HO.HSM 15:29
PROVIDERS: PCP Internal Medicine; Referring Provider Internal Medicine; Visit Provider Registered Nurse
DX: G20.A2 Parkinson's disease without dyskinesia, with fluctuations (principal)
CPT/HCPCS: 99214

== ENCOUNTER → 2025-06-17 15:29 | Outpatient (BNVA) | payer MEDICARE, SELFPAY | PROVIDERS: PCP Internal Medicine; Referring Provider Internal Medicine; Visit Provider Registered Nurse | DX: G20.A2 Parkinson's disease without dyskinesia, with fluctuations (principal) | CPT/HCPCS: 99212 ==

== ENCOUNTER 2025-07-20 16:59 | Outpatient (AMB) | payer MEDICARE, SELFPAY ==
--- NOTE | 2025-07-20 17:02 | MHC.PC.OV ---
Vital Signs 07/20/25 17:08 Height 5 ft 6 in Weight 111 lb 5.335 oz BMI 18.0 BP 152/76 H Blood Pressure Location Lt brachial Position Sitting Pulse 87 Pulse Source Pulse Oximeter Pulse Oximetry (%) 98 Oxygen Delivery Method Room Air Intake Visit Reasons: follow up - see comments [employer] Installer Required: No Accompanied by: Self / Same As Patient Allergies No Known Allergies Allergy (Verified 07/21/25 02:42) Medication List - Last Reconciled 07/21/25 by Joshua Palma MD carbidopa-levodopa 25-100 mg (Sinemet) 1.5 tabs at 7am, 11am, 3pm, 7pm, and 2 tabs at bedtime; 90 days mirtazapine 7.5 mg (1/2 x 15 mg) PO BEDTIME 90 days Tobacco use date assessed: 07/20/25 Fall risk assessment: No Falls in past year Last assessed Fall Risk: 07/20/25 Dental Screening Dental Screen Date: 07/20/25 HPI follow up - see comments HPI Details Patient comes in today for her follow-up visit - was last seen here over a year ago in April 2024 She is currently in a wheelchair but patient states that she gets up and walks around the house whenever she can with the use of a walker and with assistance from her She suffers from Parkinson's disease and at her last appointment with neurology last month, had her Sinemet dosing continued at 5 times a day, which patient states is helping with her tremors She continues to have resting tremors, most noticeable in the left upper extremity States that she sleeps well at night, has no trouble swallowing but generally eats very little as she does not have much of an appetite Patient denies any headaches or dizziness Denies any chest pains, no increased SOB No nausea/vomiting, no abdominal pain No change in bowel habits noted She's had no follow up labs done in over a year now and her last labs were from back in February 2024 [facility] Medical History Anxiety and depression Parkinson disease Surgical History No history of previous surgery Family History Mother Cancer Father Diabetes Social History Housing: House Alcohol intake: never Patient Tobacco Use Status: Never used Tobacco Tobacco use type: Cigarette e-Cigarette/Vaping Use: Never Used Second Hand Smoke Exposure: Yes Advance Directives Date on File: 06/21/21 service: No Current occupational status: retired Cognitive needs: No Hearing needs: No Vision needs: No Questionnaire PHQ-9 Over the last 2 weeks, how often have you been bothered by any of the following problems? 1. Little interest or pleasure in doing things: several days 2. Feeling down, depressed, or hopeless: several days 3. Trouble falling or staying asleep, or sleeping too much: several days 4. Feeling tired or having little energy: several days 5. Poor appetite or overeating: several days 6. Feeling bad about yourself - or that you are a failure or have let yourself or your family down: several days 7. Trouble concentrating on things, such as reading the newspaper or watching television: not at all 8. Moving or speaking so slowly that other people could have noticed. Or the opposite - being so fidgety or restless that you have been moving around a lot more than usual: not at all 9. Thoughts that you would be better off or of hurting yourself in some way: not at all Total score: 6 Depression Screening Interpretation: Positive Depression Screening Follow-up: Existing condition and In treatment Depression Screening Done: Yes 46123 - PHQ-9 Billing: Yes Source: Developed by Drs. Carlos Mcmanus, Anca Alvarez, Bakari Giraldo and colleagues, with an educational esmer from [employer]. Thrive Questionnaire Date Thrive assessed: 07/18/25 I am a: Patient What is your living situation today?: I have a steady place to live Within the past 12 months, did the food you bought not last and you didn't have the money to get more?: Never true Within the past 12 months, did you worry whether your food would run out before you got money to buy more?: Never true Do you have trouble paying for medicines?: No Do you have trouble getting transportation to medical appointments?: No Do you have trouble paying your heating and electricity bill?: No Do you have trouble taking care of your child, family member or friend?: No Do you have trouble with day-to-day activities such as bathing, preparing meals, shopping, managing finances, etc.?: No Are you currently unemployed and looking for a job?: No Are you interested in more education?: No Please select the resources that you would like help with: None Currently or been in a relationship where the following occur: No concerns reported THRIVE Score: 0 AUDIT C Alcohol Use Questionnaire (AUDIT-C) 1. How often do you have a drink containing alcohol?: Never 3. How often do you have six or more drinks on one occasion?: Never Total Score: 0 Score Reviewed/Action Taken: Yes CAMILO-7 AMB Questionnaire CAMILO-7 Date CAMILO - 7 assessed: 07/20/25 Feeling nervous, anxious, or on edge: 0 = Not at all Not being able to stop or control worryin = Not at all Worrying too much about different things: 0 = Not at all Trouble relaxin = Not at all Being so restless that it is hard to sit still: 0 = Not at all Becoming easily annoyed or irritable: 0 = Not at all Feeling afraid as if something awful might happen: 0 = Not at all Total CAMILO-7 score (0-4 normal; 5-9 mild; 10-14 moderate; 15-21 severe): 0 Source: Developed by Drs. Carlos Mcmanus, Anca Alvarez, Bakari Giraldo and colleagues, with an educational esmer from [employer]. Review of Systems Const Denies chills, Denies difficulty sleeping, Reports fatigue, Denies fever(s), Denies headache(s) and Reports weakness ENT Denies dysphagia, Denies dizziness, Denies otalgia, Denies headache(s), Denies neck pain, Denies odynophagia and Denies sore throat Card Denies chest pain, Denies palpitations and Denies dyspnea Resp Denies cough and Denies dyspnea GI Denies abdominal pain, Denies constipation, Denies dysphagia, Denies heartburn, Denies diarrhea, Denies nausea, Denies odynophagia and Denies vomiting Denies difficulty voiding, Denies nocturia, Denies dysuria and Denies urinary urgency Musc Reports abnormal gait (unsteady), Denies back pain, Reports muscle weakness, Denies neck pain and Reports stiffness Skin/Breast Denies rash Neuro Reports abnormal gait (unsteady), Denies dizziness, Denies headache(s), Reports tremor(s) and Reports weakness Psych Reports anxiety Endo Reports fatigue and Denies palpitations Physical exam (Primary Care) Vital Signs: Last Vital Signs Pulse 87 07/20/25 17:08 BP 152/76 H 07/20/25 17:08 Pulse Ox 98 07/20/25 17:08 Oxygen Delivery Method Room Air 07/20/25 17:08 BMI result Body Mass Index 18.0 Tobacco/Smoking Status: Tobacco use Status Tobacco use date assessed 07/20/25 07/20/25 17:02 Patient Tobacco Use Status Never used Tobacco 07/20/25 17:02 Tobacco use type Cigarette 07/20/25 17:34 e-Cigarette/Vaping Use Never Used 07/20/25 17:02 PHQ-9: PHQ-9 Score PHQ-9: Total score 6 07/20/25 18:01 Depression Screening Interpretation: Positive Depression Screening Follow-up: Existing condition and In treatment Thrive Assessment: Date of Thrive Assessment Date Thrive assessed 07/18/25 07/20/25 17:02 Currently or been in a relationship where the following occur: No concerns reported Const General: no acute distress and alert Orientation/consciousness: patient oriented x3 Limitations: wheelchair HENMT Ears: TM's normal bilaterally and EAC's normal Throat: Yes posterior oropharynx normal and Yes tonsils normal (no TP congestion) Neck Neck: Yes supple and No lymphadenopathy Thyroid: Thyroid normal Resp Auscultation: clear to auscultation bilaterally, no rales and no wheezes Cardio Rate: regular rate Rhythm: regular rhythm Heart sounds: no murmurs GI Palpation (GI): Soft to palpation and nontender Auscultation: normal bowel sounds General: Yes no CVA tenderness Back/Spine/Pelvis Back: no CVA tenderness Thoracic/Lumbar Spine: No lumbar spinal tenderness Skin Rashes: no rashes Neuro General: patient oriented x3 Gait exam (Neuro): Assistive device used (wheelchair) Motor exam (neuro): Tremors during motor activity present (in both upper extremities, L>R) Extrem General: Yes no clubbing, cyanosis or edema Coding Level of Care Code Est Pt Level 4 (94356) Diagnoses Parkinson's disease without dyskinesia, with fluctuating manifestations G20.A2 Dyskinesia presence: without dyskinesia Fluctuating manifestations: with fluctuating manifestations Anxiety and depression F41.9; F32.9 Additional Codes PHQ-9 - 95765 - PHQ-9 Billing: Yes ([id number]) Assessment & Plan Assessment & Plan (1) Parkinson disease: Code(s): G20.A1 - Parkinson's disease without dyskinesia, without mention of fluctuations Category: Medical Qualifiers: Dyskinesia presence: without dyskinesia Fluctuating manifestations: with fluctuating manifestations Qualified Code(s): G20.A2 - Parkinson's disease without dyskinesia, with fluctuations Plan: Continue Sinemet 25-100 mg 1.5 tablets QID at 7am, 11am, 3pm, 7pm, and 2 tablets daily at bedtime Continue home PT/OT as needed Follow up with neurology as scheduled Her head CT done last year in February 2024 revealed (+) patchy periventricular and deep white matter hypoattenuation consistent with moderate small vessel ischemic changes and was otherwise normal Patient is advised that she has not had any follow up labs done in over a year now and should go and get her labs done ALAN, especially since she is on maintenance Tx with Carbidopa-Levodopa and will need to have her LFTs and renal function monitored routinely (2) Anxiety and depression: Code(s): F41.9 - Anxiety disorder, unspecified; F32.9 - Major depressive disorder, single episode, unspecified Category: Medical Plan: Continue Mirtazapine 7.5 mg Q HS Plan Follow up in 6 months Orders: Orders Complete Blood Count Auto Diff 07/20/25 D64.9 - Anemia, unspecified Comprehensive [place]. Panel Fast 07/20/25 E78.00 - Pure hypercholesterolemia, unspecified Lipid Panel 07/20/25 E78.00 - Pure hypercholesterolemia, unspecified UA CC w/rflx Micro + Cult 07/20/25 R30.0 - Dysuria Vitamin B12 and Folate 07/20/25 E53.8 - Deficiency of other specified B group vitamins TSH reflex Free T4 07/20/25 E78.00 - Pure hypercholesterolemia, unspecified Vitamin D 25-OH Total 07/20/25 E55.9 - Vitamin D deficiency, unspecified Hemoglobin A1c 07/20/25 R73.9 - Hyperglycemia, unspecified Homocysteine 07/20/25 G20.A2 - Parkinson's disease without dyskinesia, with fluctuations, Z51.81 - Encounter for therapeutic drug level monitoring
[2025-07-20 17:08] VITALS: BP 152/76; PULSE 87; O2SAT 98; BMI 18.0
== END 2025-07-20 18:05 | disposition home or self-care (01) ==
LOC: HO.HMCH 17:00
PROVIDERS: PCP Internal Medicine; Visit Provider Internal Medicine
DX: G20.A2 Parkinson's disease without dyskinesia, with fluctuations (principal); F41.9 Anxiety disorder, unspecified; F32.9 Major depressive disorder, single episode, unspecified

== ENCOUNTER → 2025-07-20 16:59 | Outpatient (BNVA) | payer MEDICARE, SELFPAY | PROVIDERS: PCP Internal Medicine; Visit Provider Internal Medicine | DX: G20.A2 Parkinson's disease without dyskinesia, with fluctuations (principal); F41.9 Anxiety disorder, unspecified; F32.9 Major depressive disorder, single episode, unspecified; D64.9 Anemia, unspecified; E78.00 Pure hypercholesterolemia, unspecified; R30.0 Dysuria; E53.8 Deficiency of other specified B group vitamins; E55.9 Vitamin D deficiency, unspecified; R73.9 Hyperglycemia, unspecified | CPT/HCPCS: 96127; 99212 ==